=== PATIENT | female | born 1960 | race Caucasian/White ===

== ENCOUNTER 2018-07-21 10:24 | Outpatient (CLI) | payer OTHER, SELFPAY ==
--- NOTE | 2018-07-21 10:49 | DI.RAD_ITS ---
SYMPTOMS/DIAGNOSIS: RT HAND PAIN/SWELLING 2ND MCP, GRASPING/LIFTING YESTERDAY, FEEL SUDDEN TEAR RIGHT HAND: Three views. No acute fracture or dislocation is seen. The soft tissues are unremarkable. Mild degenerative changes are seen in the hand. IMPRESSION: No acute abnormality.
== END 2018-07-21 10:44 ==
PROVIDERS: PCP Nurse Practitioner Family; Visit Provider Nurse Practitioner Family
DX: M79.641 Pain in right hand (principal); R22.31 Localized swelling, mass and lump, right upper limb; M79.89 Other specified soft tissue disorders; M19.041 Primary osteoarthritis, right hand
CPT/HCPCS: 73130

== ENCOUNTER 2018-08-25 00:29 | Outpatient (CLI) | payer OTHER, SELFPAY ==
--- NOTE | 2018-08-25 14:35 | DI.MRI_ITS ---
SYMPTOMS/DIAGNOSIS: NECK PAIN, LEFT UPPER EXTREMITY NUMBNESS MRI OF THE CERVICAL SPINE: Routine noncontrast examination was performed. There is normal signal in the spinal cord. No evidence of tonsillar ectopia is seen. At C7-T1, there is no focal disc herniation, central spinal canal or neural foraminal stenosis. At C6-C7, there is a mild diffuse disc bulge. No significant central spinal canal stenosis is seen. There are mild degenerative changes of the uncovertebral joints and facets. There is mild narrowing of the neural foramen bilaterally. At C5-C6, there is a diffuse disc bulge with some effacement of the anterior thecal sac. No central spinal canal stenosis is seen. There are hypertrophic changes of the facets and uncovertebral joints. There is mild narrowing of the left neural foramen and right neural foramen. At C4-C5, there is a mild diffuse disc bulge. No central spinal canal stenosis is seen. There are mild degenerative changes of the facets and uncovertebral joints without significant neural foraminal stenosis. At C3-C4 and C2-C3, no significant central spinal canal or neural foraminal stenosis is seen. There is hyperintense signal seen in the C5 and C6 vertebral bodies on the T2 weighted images and corresponding decreased signal on the T1 weighted images. IMPRESSION: 1. Multilevel degenerative changes in the cervical spine, resulting in multilevel neural foraminal stenosis. Please see the above discussion for complete details. 2. Abnormal signal seen in the C5 and C6 vertebral bodies. This is nonspecific. Infection or metastatic disease cannot be excluded. Postcontrast MRI should be considered for further evaluation.
--- NOTE | 2018-08-25 17:23 | DI.VRAD_ITS ---
EXAM: MR Cervical Spine Without Intravenous Contrast EXAM DATE/TIME: 08/25/2018 2:31 PM CLINICAL HISTORY: 57 years old, female; Pain; Cervicalgia TECHNIQUE: Multiplanar magnetic resonance images of the cervical spine without intravenous contrast. COMPARISON: MRA BRAIN NECK WO,W 04/25/2015 4:30 PM FINDINGS: Vertebrae: There is increased STIR signal in C5 and C6 vertebrae and decreased T1 signal. Discs/Spinal canal/Neural foramina: No spinal stenosis. C2-C3: Unremarkable. C3-C4: Unremarkable. C4-C5: Minimal disc bulge. Bilateral facet and uncovertebral hypertrophy with mild left neural foramina narrowing. C5-C6: Mild disc bulge effacing the ventral thecal sac. Bilateral facet and uncovertebral hypertrophy with mild left neural foramina narrowing. C6-C7: Disc bulge. Bilateral facet and uncovertebral hypertrophy. Mild bilateral neural foramina narrowing. C7-T1: Unremarkable. The at the at the depth at the Spinal cord: Normal signal. No cord compression. Vasculature: Expected flow voids in the vertebral arteries. Soft tissues: Unremarkable IMPRESSION: Increased STIR signal in the C5 and C6 vertebrae. Given non-contrast images etiology can be infection versus metastasis. Dictated and Authenticated by: Tom Wan MD. Ordering:JUAN PIERCE MD
== END 2018-08-25 00:49 ==
PROVIDERS: PCP Nurse Practitioner Family; Visit Provider Nurse Practitioner Family
DX: M54.2 Cervicalgia (principal); R20.0 Anesthesia of skin; M50.322 Other cervical disc degeneration at C5-C6 level; M48.02 Spinal stenosis, cervical region
CPT/HCPCS: 72141

== ENCOUNTER 2018-09-13 02:01 | Outpatient (CLI) | payer OTHER, SELFPAY ==
[2018-09-13 16:10] LABS: CREATININE 0.58 mg/dL (0.55-1.02)
== END 2018-09-13 02:21 ==
PROVIDERS: PCP Nurse Practitioner Family; Visit Provider Nurse Practitioner Family
DX: I10 Essential (primary) hypertension (principal)
CPT/HCPCS: 36415; 82565

== ENCOUNTER 2018-09-14 00:30 | Outpatient (CLI) | payer OTHER, SELFPAY ==
[2018-09-14] MEDS: Gadoterate meglumine 20 ML VIAL 13 ML IVP (14:45)
--- NOTE | 2018-09-14 15:10 | DI.MRI_ITS ---
SYMPTOM/DIAGNOSIS: NECK PAIN, LUE TINGLING, F/U ABNL MRI, NONSPECIFIC SIGNAL C 5 AND C6 CERVICAL SPINE MRI: Comparison is made with 08/25/18. Fat suppressed T 1, sagittal and axial sequences were performed before and after IV Dotarem. The exam is limited by patient motion and inhomogeneous fat suppression. There is enhancement within the C 5 and C 6 vertebral bodies in the previously noted areas that showed high signal on the T 2 and STIR sequences. There is no abnormal enhancement surrounding the vertebral bodies. No vertebral expansion is seen. Degenerative disc changes are again noted at C 5-6. The signal abnormality and contrast enhancement could represent degenerative signal changes. There are no findings to suggest discitis. Metastatic disease or osteomyelitis could not be entirely excluded.
== END 2018-09-14 00:50 ==
PROVIDERS: PCP Nurse Practitioner Family; Visit Provider Nurse Practitioner Family
DX: M54.2 Cervicalgia (principal); R20.2 Paresthesia of skin; M50.322 Other cervical disc degeneration at C5-C6 level
CPT/HCPCS: 72142

== ENCOUNTER 2018-09-22 02:41 | Outpatient (CLI) | payer OTHER, SELFPAY ==
[2018-09-22 13:34] LABS: Abs Immature Grans 0.01 k/cumm (0.0-0.09); Absolute Basophil Count 0.03 k/cumm (0.0-0.2); Absolute Lymphocyte Count 2.59 k/cumm (1.2-3.4); Absolute Monocyte Count 0.64 k/cumm (0.11-0.7); Absolute Neutrophil Count 4.74 k/cumm (1.2-6.7); Basophils % 0.4; Eosinophils % 1.2; HCT 45.3 % (36.0-46.0); HGB 15.3 g/dL (12.0-15.5); Immature Grans % 0.1; Lymphocytes % 31.9; Mean Corp. HGB Concentration 33.8 g/dL (32.0-36.0); Mean Corpuscular Hemoglobin 32.3 pg (27.0-33.0); Mean Corpuscular Volume 95.6 fL (80-95); Mean Platelet Volume 10.6 fL (8.0-11.0); Monocytes % 7.9; Neutrophils % 58.5; Platelet Count 195 x1000/uL (130-400); RBC 4.74 m/cumm (4.00-5.20); RBC Distribution Width 12.4 % (11.7-14.6); White Blood Cell Count 8.11 k/cumm (4.4-10.8)
[2018-09-22 15:25] LABS: ESR 14 MM/HR (0-30)
== END 2018-09-22 03:01 ==
PROVIDERS: PCP Nurse Practitioner Family; Visit Provider Nurse Practitioner Family
DX: M54.2 Cervicalgia (principal); M50.322 Other cervical disc degeneration at C5-C6 level; R93.7 Abnormal findings on diagnostic imaging of other parts of musculoskeletal system
CPT/HCPCS: 36415; 85652; 85025

== ENCOUNTER 2018-10-10 00:45 | Outpatient (CLI) | payer OTHER, SELFPAY ==
[2018-10-10] MEDS: Gadoterate meglumine 20 ML VIAL 13 ML IVP (15:34)
[2018-10-10 15:40] LABS: TSH (W/Ref FT4) 2.65 uIU/mL (0.358-3.74)
--- NOTE | 2018-10-10 15:45 | DI.MRI_ITS ---
SYMPTOMS/DIAGNOSIS: NEW ONSET MIGRAINE/HEADACHES, G44.51 BRAIN MRI: MRI examination of the brain was performed according to the usual protocol with additional postcontrast axial and coronal T1 weighted imaging. No mass lesion or enhancing lesion is seen in the brain. Ventricular system is normal in appearance. No signal abnormality is identified. Diffusion weighted imaging is within normal limits. Orbital and temporal bone structures appear intact. There is normal flow void in the [place] of [place] vasculature. CONCLUSION: Negative brain MRI.
== END 2018-10-10 01:05 ==
PROVIDERS: PCP Nurse Practitioner Family; Visit Provider Psychiatry & Neurology Neurology
DX: G44.51 Hemicrania continua (principal); E03.9 Hypothyroidism, unspecified
CPT/HCPCS: 36415; 70553; 84443

== ENCOUNTER 2018-12-28 07:32 | Outpatient (CLI) | payer OTHER, SELFPAY ==
--- NOTE | 2018-12-28 06:00 | DI.RAD_ITS ---
SYMPTOM/DIAGNOSIS: CERVICAL RADICULOPATHY, CERVICAL EPIDURAL STEROID INJECTION C-ARM: Fluoroscopy Time: 25.3 seconds Images submitted from the pain clinic demonstrate positioning of a needle over the midline in the cervical spine in conjunction with an epidural steroid injection. Please see Dr. Sands's procedure report for further information.
[2018-12-28 07:39] VITALS: BP 117/81; PULSE 83; RESP 20; TEMP 36.9; O2SAT 99
[2018-12-28] MEDS: Lactated Ringers 1,000 ML 80 ML IV (08:19)
[2018-12-28] MEDS: Midazolam 2 MG/2 ML VIAL IVP ×2 (08:23→08:26)
[2018-12-28 08:33] VITALS: BP 147/89; PULSE 84; RESP 12; O2SAT 99
[2018-12-28] MEDS: methylPREDNISolone ACETATE 40 MG/ML VIAL IJ (08:35)
[2018-12-28] MEDS: Omnipaque 240 MG/ML 50 ML BTL IJ (08:35)
--- NOTE | 2018-12-28 08:37 | PDOC.PAIN ---
Pain Clinic Procedure Note Current Active Problems Problem Status Onset Cervical radiculitis Acute Cervical Epidural Steroid Injection RAE ROSSI has been referred to the [facility] for cervical epidural steroid injection. COMMENTS:Patient has neck pain radiating to left upper extremity with C5-6 disc protrusion. Patient was interviewed and the medical record reviewed. There were no medical, pharmacologic, radiographic or other structural contraindications to attempting fluoroscopically guided epidural steroid injection. Risks and expected side effects as well as potential benefit of the procedure were reviewed and voiced concerns addressed. The printed consent form was signed and witnessed. Standard time-out procedure was performed. The patient was placed in the prone position on the fluoroscopy table and automated blood pressure cuff and pulse oximeter applied. The skin entry point for entering the epidural space by a midline C7-T1 interlaminar approach was identified under fluoroscopy and marked. Following thorough Chlorhexadine preparation of the skin and draping and 1% lidocaine infiltration of the skin entry point and subcutaneous tissues, an 17 gauge Tuohy needle was placed under fluoroscopic guidance and with loss of resistance technique into the epidural space. Upon needle placement and loss of resistance there were no paresthesiae or return of blood or CSF through the needle. An Arrow catheter was thread cephalad to the C5 level {left} of midline. 1ml of Omnipaque 240 were injected with clear epidural spread in the A/P, lateral and oblique views. 80mg Depomedrol with 1ml sterile normal saline were injected through the catheter with no unusual discomfort expressed. Vital signs were stable throughout the procedure and were as recorded in the docflowsheet by the nursing staff. If given, dosages of intravenous drugs for anxiolysis and analgesia were documented in MAR. Follow up plans and appointments were discussed. Post procedure instruction was given as documented in nursing documentation and having met discharge criteria and was discharged from the [facility]. COMMENTS:Versed 2 mg given. She will follow-up as needed. Consider repeating or possible cervical medial branch block if pain is more axial. CC: Nicole Moser APRN
== END 2018-12-28 07:52 ==
PROVIDERS: PCP Nurse Practitioner Family; Visit Provider Anesthesiology Pain Medicine
DX: M54.12 Radiculopathy, cervical region (principal)
CPT/HCPCS: 62321; 72040; J1030; J2250; Q9967

== ENCOUNTER 2019-02-09 16:42 | Outpatient (REF) | payer OTHER, SELFPAY ==
--- NOTE | 2019-02-09 16:00 | PAPFT_PTH ---
PATIENT: Chloe Doran LOC: [facility] U#:[id number] AGE/SX: 58/F ROOM: RE02/09/[address]: ORIN Katz : 1960 BED: DIS: 02/09/2019 SPEC #: [id number] RECD: 02/10/19 13:06 STATUS: [place] CABA #: [id number] PAU: 02/09/19 16:[address]: Bridgett Slater DEPT: [facility] Cytology RECD BY: Freddy Keane ENTERED: 02/10/19 13:07 SP TYPE: PAPFT ODALYS DR: Nicole Moser, JAMES Tissues: 1 - CX/ENDOCX FOR PAP SMEARS Procedures: PAP THIN PREP/UVM Screening HPV DNA PROBE Comments: [id number]
== END 2019-02-09 17:02 ==
LOC: LBN 16:42
PROVIDERS: PCP Nurse Practitioner Family; Visit Provider Nurse Practitioner Family
DX: Z12.4 Encounter for screening for malignant neoplasm of cervix (principal); Z11.51 Encounter for screening for human papillomavirus (HPV)
CPT/HCPCS: 88142; 87624

== ENCOUNTER 2019-02-27 06:34 | Outpatient (CLI) | payer OTHER, SELFPAY ==
--- NOTE | 2019-02-27 16:30 | DI.MAMMO_ITS ---
SYMPTOM/DIAGNOSIS: SCREENING MAMMOGRAMS: Mammograms were interpreted according to the usual protocol including computer analysis with CAD system, tomosynthesis and C view imaging. Comparison is made with exams from [id number]. The breasts are composed of scattered fibroglandular densities, breast density, Category B. No suspicious masses or suspicious microcalcifications are seen. There has been no significant change. IMPRESSION: Category 1, negative mammogram. Yearly screening mammography is recommended. [facility] ASSESSMENT OF FINDINGS: Negative. Category 1. Patient will receive a letter notifying them of these results. BI-RADS category B. There are scattered areas of fibroglandular density.
== END 2019-02-27 06:54 ==
PROVIDERS: PCP Nurse Practitioner Family; Visit Provider Nurse Practitioner Family
CPT/HCPCS: 77063; 77067

== ENCOUNTER 2019-03-17 02:03 | Outpatient (CLI) | payer OTHER, SELFPAY ==
[2019-03-17 08:05] LABS: Hemoglobin A1C 5.5 % (4.5-6.2)
[2019-03-17 08:46] LABS: Anion Gap 10.7 mmol/L (3-11); BUN 8 mg/dL (7-18); CO2 26.3 mmol/L (21.0-32.0); CREATININE 0.55 mg/dL (0.55-1.02); Chloride 102 mmol/L (98-107); Cholesterol 263 mg/dL (50-200); Glucose 108 mg/dL (70-100); HDL Cholesterol 71 mg/dL (40-60); LDL CHOLESTEROL 149 mg/dL (<100); Potassium 4.4 mmol/L (3.5-5.1); Sodium 139 mmol/L (136-145); TSH (W/Ref FT4) 1.19 uIU/mL (0.358-3.74); Triglyceride 109 mg/dL (30-150)
== END 2019-03-17 02:23 ==
PROVIDERS: PCP Nurse Practitioner Family; Visit Provider Nurse Practitioner Family
DX: I10 Essential (primary) hypertension (principal); R73.01 Impaired fasting glucose; E78.5 Hyperlipidemia, unspecified; E03.9 Hypothyroidism, unspecified
CPT/HCPCS: 36415; 80048; 80061; 83721; 83036; 84443

== ENCOUNTER 2019-09-11 09:43 | Outpatient (CLI) | payer OTHER, SELFPAY ==
[2019-09-15 10:19] LABS: Metanephrine, Free 0.29 nmol/L (<0.50); Normetanephrine, Free 1.5 nmol/L (<0.90)
== END 2019-09-11 10:03 ==
PROVIDERS: PCP Nurse Practitioner Family; Visit Provider Nurse Practitioner Family
DX: I10 Essential (primary) hypertension (principal); E78.5 Hyperlipidemia, unspecified; R73.01 Impaired fasting glucose; E03.9 Hypothyroidism, unspecified; R19.4 Change in bowel habit; R79.89 Other specified abnormal findings of blood chemistry
CPT/HCPCS: 36415; 80048; 80061; 83036; 83835; 84439; 84443

== ENCOUNTER 2020-05-09 01:43 | Outpatient (CLI) | payer OTHER, SELFPAY ==
[2020-05-09 10:17] LABS: Anion Gap 10.4 mmol/L (3-11); BUN 9 mg/dL (7-18); CO2 24.6 mmol/L (21.0-32.0); CREATININE 0.63 mg/dL (0.55-1.02); Calcium 8.9 mg/dL (8.5-10.1); Calculated LDL 182 mg/dL (<100); Chloride 103 mmol/L (98-107); Cholesterol 287 mg/dL (<200); Glucose 113 mg/dL (74-106); HDL Cholesterol 92 mg/dL (40-60); Potassium 3.8 mmol/L (3.5-5.1); Sodium 138 mmol/L (136-145); Triglyceride 69 mg/dL (<150)
[2020-05-13 14:09] LABS: Metanephrine, Free 0.27 nmol/L (<0.50); Normetanephrine, Free 1.4 nmol/L (<0.90)
== END 2020-05-09 02:03 ==
PROVIDERS: PCP Nurse Practitioner Family; Visit Provider Nurse Practitioner Family
DX: I10 Essential (primary) hypertension (principal); E78.5 Hyperlipidemia, unspecified; E03.9 Hypothyroidism, unspecified
CPT/HCPCS: 36415; 80048; 80061; 83835; 84443

== ENCOUNTER 2020-08-02 06:55 | Day surgery (SDC) | payer OTHER, SELFPAY ==
[2020-08-02 07:12] VITALS: BP 118/81; PULSE 81; RESP 16; TEMP 36.1; O2SAT 98
--- NOTE | 2020-08-02 08:03 | W.PM.DSUDISC ---
Discharge Plan Disposition Patient Disposition: HOME Condition: Good Discharge Details Reason For Visit: Colonoscopy Attending Provider: Vaishnavi Orozco Primary Care Provider: Nicole Moser Home Meds and New Rx's Prescriptions: Continued estradiol [Vagifem] 10 mcg tablet 10 mcg VG DAILY 14 Days Qty: 24 RF: 4 amlodipine [Norvasc] 10 mg tablet 5 mg PO DAILY RF: 0 levothyroxine 175 mcg tablet 175 mcg PO DAILY Qty: 90 RF: 0 aspirin 81 MG tablet,delayed release (DR/EC) 81 mg PO DAILY RF: 0 Discontinued bisacodyl [Dulcolax (bisacodyl)] 5 mg tablet,delayed release (DR/EC) 5 mg PO ONCE Qty: 4 RF: 0 polyethylene glycol 3350 17 gram/dose powder 17 g PO ONCE Qty: 238 RF: 0 Discharge Instructions Additional Instructions: Findings: Two small polyps were removed. My office will contact you with biopsy results. Follow up: Plan for a colonoscopy in 5 years. Please call if you develop: fevers >101.5 Nausea or Vomiting Abdominal pain that is not transient [facility] POST COLONOSCOPY INSTRUCTIONS 1. Because there will be medication in your system for the next 24 hours, you may feel a little sleepy. Your coordination will be affected. Therefore: a. Do not drive or operate dangerous equipment for 24 hours. b. Do not drink alcohol beverages for 24 hours (not even beer). c. Plan to go home and rest for the day. 2. Generally there are no restrictions on your activity after a day or so has gone by, but you may feel a bit fatigued for a few days. 3 After you arrive home you may have a light meal and return to a normal diet as you can tolerate it without feeling sick to your stomach. 4. After surgery, you may feel pain or discomfort. This should be only transient, but if it persists please contact your doctor. 5. If there are any questions regarding the findings of your procedure, please feel free to contact your doctor. 6. If you are unable to contact your doctor with a problem, contact the hospital at [phone]. 7. Continue all your regular medications unless directed otherwise. I understand the above instructions and have no questions. Signature of Patient or Responsible Adult Escort Date/Time Name of Responsible Adult Escort Signature of Nurse Date/Time Activity:: Activity as Tolerated Diet:: As Tolerated Discharge Orders Discharge Orders: Discharge Order (Routine); Ordered 08/02/20 Ordered By: Vaishnavi Orozco DS: Diagnosis Discharge Diagnosis (1) Colon polyps: Status: Acute (2) Diverticulosis: Status: Chronic
--- NOTE | 2020-08-02 08:04 | W.COLOREPORT ---
Date of service: 08/02/20 Time of Service: 09:08 Colonoscopy Report Date of procedure: 08/02/20 Pre-op diagnosis general: History of colon polyp Post-op diagnosis procedure note: other (Colon polyps, diverticulosis) Procedure: Colonoscopy with cold forceps polypectomy Surgeon: Vaishnavi Orozco Anesthesia proc note operative: MAC Indications: This 59 year old woman had a greater than 1cm sigmoid tubular adenoma removed in 2014. She presents for follow up. No FH colon cancer. Procedure Description: The patient was placed in the left Mckeon position. Propofol was titrated to sedation. Digital rectal examination revealed no abnormalities. The scope was advanced to the cecum without difficulty. The ileocecal valve and appendiceal orifice were clearly identified. The prep was good. The scope was slowly withdrawn over the course of greater than 6 minutes. A diminuitive polyp was removed from the ascending colon with the cold forceps. No abnormalities were seen in the transverse, descending, sigmoid colon with the exception of scattered diverticulosis. The rectum revealed a 8mm polyp on retroflexed view which was removed with the cold forceps. The patient tolerated the procedure well and was stable to recovery. Plan for follow up colonoscopy in 5 years.
[2020-08-02] MEDS: Lactated Ringers 1,000 ML 80 ML IV (08:05)
--- NOTE | 2020-08-02 08:31 | BOWEL_PTH ---
PATIENT: Chloe Doran LOC: [facility] U#:[id number] AGE/SX: 59/F ROOM: RE08/02/[address]: Vaishnavi Orozco MD : 1960 BED: DIS: 08/02/2020 SPEC #: [id number] RECD: 08/02/20 11:01 STATUS: [place] REQ #: [id number] PAU: 08/02/20 08:[address]: Vaishnavi Orozco DEPT: Surgical Specimen RECD BY: Yadi Johnston ENTERED: 08/02/20 11:03 SP TYPE: Bowel OTHR DR: Nicole Moser, AUTOMOBILE APPRAISER Tissues: 1 - BIOPSY BOWEL 2 - BIOPSY BOWEL Procedures: GROSS AND MICRO LEVEL 4 Comments: [id number]
[2020-08-02 09:32] VITALS: BP 142/88; PULSE 69; RESP 20; TEMP 36.2; O2SAT 99
== END 2020-08-02 09:55 | disposition home or self-care (01) ==
PROVIDERS: PCP Nurse Practitioner Family; Visit Provider Surgery
PROC: 0DJD8ZZ Inspection of Lower Intestinal Tract, Via Natural or Artificial Opening Endoscopic (ICD-10-PCS; CPT 45378; principal; 2020-08-02 08:30)
DX: Z12.11 Encounter for screening for malignant neoplasm of colon (principal); Z86.010 Personal history of colon polyps; K57.30 Diverticulosis of large intestine without perforation or abscess without bleeding; K62.1 Rectal polyp
CPT/HCPCS: 45380; 88305; J2001

== ENCOUNTER 2021-01-01 02:13 | Outpatient (CLI) | payer OTHER, SELFPAY ==
[2021-01-01 08:04] LABS: Hemoglobin A1C 5.6 % (<5.7)
[2021-01-01 09:27] LABS: Calculated LDL 138 mg/dL (<100); Cholesterol 246 mg/dL (<200); HDL Cholesterol 97 mg/dL (40-60); TSH (W/Ref FT4) 3.56 uIU/mL (0.36-3.74); Triglyceride 59 mg/dL (<150)
== END 2021-01-01 02:14 | disposition home or self-care (01) ==
LOC: LBO 02:13
PROVIDERS: PCP Nurse Practitioner Family; Visit Provider Nurse Practitioner Family
DX: R73.01 Impaired fasting glucose (principal); E78.5 Hyperlipidemia, unspecified; E03.9 Hypothyroidism, unspecified
CPT/HCPCS: 36415; 80061; 83036; 84443

== ENCOUNTER 2021-12-30 10:25 | Observation (INO) | payer OTHER, SELFPAY ==
[2021-12-30] VITALS (25 sets, daily range): BP systolic 131–191; BP diastolic 65–96; PULSE 58–91; RESP 7–20; TEMP 36.6–36.8; O2SAT 94–100
--- NOTE | 2021-12-30 | DI.US_ITS ---
APPROVED REPORT EXAM: Comprehensive 2D, Doppler, and color-flow Echocardiogram Patient Location: ER Room/Bed: 2 Headline Writer: Daphne Perrin RDCS (AE) Indications: TIA Symptoms Other Information Study Quality: Adequate Conclusion Normal left ventricular wall thickness and chamber size. Estimated ejection fraction is 65%. Wall m otion is normal Normal right ventricular size and systolic function Both atria are normal in size There is no structural or hemodynamically significant valvular disease Wall motion Left Ventricle The left ventricle is normal size. The left ventricular systolic function is normal. The left ventric ular ejection fraction is within the normal range. There is normal left ventricular wall thickness. T here is normal LV segmental wall motion. There is no ventricular septal defect visualized. LVEF is 65 %. Right Ventricle Right ventricle is grossly normal in size. Right ventricular systolic function is grossly normal. The RVSP is 26.0 mmHg. Atria The left atrium size is normal. The right atrium size is normal. The interatrial septum is intact wit h no evidence for an atrial septal defect. Aortic Valve The aortic valve is normal in structure. Aortic valve is trileaflet. There is no aortic valvular sten osis. No aortic regurgitation is present. Mitral Valve The mitral valve is normal in structure. No evidence of mitral valve stenosis. Trace to mild mitral r egurgitation. Tricuspid Valve The tricuspid valve is normal in structure. There is no tricuspid valve stenosis. Trace tricuspid reg urgitation. Pulmonic Valve Pulmonic valve is not well visualized. There is no pulmonic valvular stenosis. There is no pulmonic v alvular regurgitation. Great Vessels The aortic root is normal in size. Ascending aorta is not well visualized. Aortic arch is normal in c aliber. IVC is normal in size and collapses >50% with inspiration. Pericardium There is no pericardial effusion. 2D Dimensions IVSD d PLAX 0.90 cm F: 0.6-1.0 LV Vol A2C d MOD 86.0 mL LVPW d PLAX 0.91 cm F: 0.6 - 1.0 LV Vol A4C d MOD 77.7 mL LVID d PLAX 4.20 cm F: 3.8 - 5.2 LA vol/ BSA A2C s A-L 21.8 mL/m2 LVDs 2.75 cm F: 2.2 - 3.5 LA vol/ BSA A4C s A-L 13.1 mL/m2 Ao Root d 2.63 cm F: 2.7 - 3.3 LA Vol/ BSA Biplane s A-L 17.8 mL/m2 RA Area A4C 9.50 cm2 LA Area A4C s MOD 10.38 cm2 RA Vol/ BSA A4C s A-L 11.8 mL/m2 LA Area A2C s MOD 14.15 cm2 LV EF Teichholz 63.3 % LV EF A4C MOD 65.0 % LVEF ([place]'s) 65.55 % F: 54 - 74 LV EF A2C MOD 65.1 % LV Volume 65.98 mL F: 46 - 106 LV EF Biplane MOD 65.6 % LV Volume Index 37.91 mL/m2 F: 29 - 61 SV 55.02 mL LV Vol Biplane MOD 83.9 mL SV Index 31.48 mL/m2 FS 33.95 % M-Mode TAPSE 2.48 cm (M/F) >1.7 LV Diastology MV E' medial 0.085 (>0.07 m/s) E/A Ratio 0.8 LV E/e MED 8.10 (<14) MV E Vmax 0.69 (0.4-1.3 m/s) MV E' lateral 0.086 (>0.1 m/s) MV A Vmax 0.90 (0.4-1.3 m/s) LV E/e LAT 7.95 (<14) MV E/A Ratio 0.76 MV E/E' medial 8.11 MV E/E' lateral 7.95 Aortic Valve LVOT Area 2.96 cm2 AoV Area Vmax 1.87 cm2 LVOT Vmax 1.09 m/s AoV Area/ BSA (Vmax) 1.07 cm2/m2 LVOT Mean Eagle. 0.67 m/s BELLE Mean Eagle. 1.71 cm2 LVOT Peak Grad 4.7 mmHg BELLE Mean Eagle. Index 0.98 cm2/m2 LVOT Mean Grad 2.2 mmHg LVOT VTI 0.229 m LVOT Diam s 1.90 cm AoV Vmax 1.72 m/s Velocity Ratio 0.63 AoV Mean Eagle. 1.17 m/s AoV Peak Grad 11.8 mmHg LVOT SV 67.64 mL AoV Mean Grad 6.1 mmHg AoV VTI 0.357 m AoV Area VTI 1.89 cm2 AoV Area/ BSA (VTI) 1.08 cm/m2 Mitral Valve MV DT 275 (160-240 msec) MV PHT 80 msec MV Area PHT 2.76 cm2 MV VTI 0.218 m MV Area VTI 3.10 (4.0-6.0 cm2) Pulmonary Valve PV Vmax 0.90 (0.5-1.5 m/s) RVOT Peak Gr. 2.61 mmHg PV Peak Grad 3.2 mmHg RVOT Mean Gr. 1.30 mmHg PV Mean Grad 1.8 mmHg RVOT VTI 0.184 m PV VTI 0.192 m RVOT Vmax 0.81 m/s Tricuspid Valve TR Peak Grad 22.9 mmHg TR Vmax 2.40 m/s RA Pressure 3.00 mmHg RVSP (TR) 26.0 mmHg
--- NOTE | 2021-12-30 | DI.US_ITS ---
Exam(s) US CAROTID EXAM: US CAROTID CLINICAL HISTORY: R internal carotid stenosis on CT. TECHNIQUE: Ultrasound carotids performed using grayscale, color-flow, and spectral Doppler imaging. COMPARISON: No exams were available for comparison FINDINGS: RIGHT CAROTID ARTERY: Plaque: Severe calcified plaque common carotid bulb and proximal internal carotid artery Velocity elevation: Elevated velocities in the common carotid bulb and proximal internal carotid ama ry consistent with moderate degree of stenosis, 50-69 percent. LEFT CAROTID ARTERY: Plaque: Severe calcified plaque common carotid bulb and proximal internal carotid artery. Velocity elevation: Severe systolic and diastolic velocity elevations in the proximal internal caroti d artery consistent with a greater than 70 percent stenosis. VERTEBRAL ARTERIES: Antegrade flow. Measurements: R Bulb: 144.6cm/s PS / 44cm/s ED R CCA: 66.5cm/s PS / 19.5cm/s ED R ECA: 145.2cm/s PS / 30.8cm/s ED R ICA Prox: 163.25cm/s PS /47.6cm/s ED R ICA Mid: 111.5cm/s PS / 31.6cm/s ED R ICA Distal: 69.4cm/s PS /26.8cm/s ED R Vert: 44.4cm/s PS / 14.8cm/s ED R SVR: 2.49 R DVR: 2.44 L Bulb: 62.8cm/s PS /21.5cm/s ED L CCA: 52.6cm/s PS / 15.75cm/s ED L ECA: 125.6cm/s PS /26.4cm/s ED L ICA Prox:258.9cm/s PS / 76.34cm/s ED L ICA Mid: 124.9cm/sPS / 34.7cm/s ED L ICA Distal: 86.2cm/s PS / 32.6cm/s ED L Vert: 33.7cm/s PS / 12.1cm/s ED L SVR: 5.25 L DVR: 6.01 IMPRESSION: Greater than 70 percent stenosis proximal left internal carotid artery. 50-69 percent stenosis proximal right internal carotid artery. Criteria for Carotid Stenosis: Normal: ICA PSV <125 cm/s no plaque or intimal thickening is visible. <50% stenosis: ICA PSV <125 cm/s and plaque or intimal thickening is visible. 50-69% stenosis: ICA PSV is 125-250 cm/s and plaque is visible. >70% stenosis to near occlusion: ICA PSV >250 cm/s with visible plaque and luminal narrowing. DATA REPOSITORY:
--- NOTE | 2021-12-30 | DI.MRI_ITS ---
Exam(s) MR BRAIN WO EXAM: MR BRAIN WO CLINICAL HISTORY: TIA symptoms TECHNIQUE: Multiplanar multisequence MRI of the brain was performed. COMPARISON: No exams were available for comparison FINDINGS: VENTRICLES AND EXTRA AXIAL SPACES: Normal in size and morphology for the patient's age. MIDLINE SHIFT: None. CEREBRAL PARENCHYMA: No focus of restricted diffusion to suggest acute infarct. No space-occupying le teetee identified. HEMORRHAGE: None. BRAINSTEM/CEREBELLUM: Normal. VISUALIZED PARANASAL SINUSES/MASTOIDS:Clear. [place]: Normal flow void. [place]: Unremarkable. OTHER FINDINGS: None. IMPRESSION: Unremarkable MRI of the brain. DATA REPOSITORY:
--- NOTE | 2021-12-30 10:15 | RT.EKG_ITS ---
APPROVED REPORT Exam: Resting ECG Reason for Exam: dizzy,faintness Patient Location: E HR:78 bpm ECG Measurements Heart Rate 78 AXIS WA 135 P 70 QRSd 83 QRS 62 QT 399 T 61 QTc 456 Conclusion Sinus rhythm...normal P axis, V-rate 60- 99 Probable left atrial enlargement...P >50mS, <-0.10mV V1. Sinus. Normal axis. No STEMI. I have reviewed and interpreted ECG and agree with software generated interpretation.
--- NOTE | 2021-12-30 10:33 | ED.GENADUL_ITS ---
Discharge Plan Disposition Patient Disposition: [facility] INPATIENT Condition: Stable Discharge Details Clinical Impression: TIA (transient ischemic attack), Hypertension, Dizziness Admit Date/Time: 12/30/21 13:15 Admit Provider: Kevin Pickett Attending Provider: Kevin Pickett Primary Care Provider: Nicole Moser ED Provider: Niecy Worthy Discharge Data Discharge Date/Time-TO BE ENTERED AT DEPARTURE: 12/30/21 14:22 Medical Decision Making 1030 -- 61-year-old female with a history of hypertension, tobacco smoking, TIA and daily alcohol use who presents for lightheadedness, headache and nausea that started within the past hour while driving. EKG notes a rate of 78, sinus, no STEMI nondiagnostic. Her blood pressure is hypertensive at 191/96. It is improving at 179/84. Patient appears slightly anxious but nontoxic. She has no focal deficits on exam. No cerebellar signs. No meningeal signs. 1115 --nursing requested assessment at bedside as patient is complaining of right hand tingling and numbness. She has an IV in the right AC. Patient states his right arm feels warm. She has no notable focal deficits. Her sensory and motor is grossly intact. Will continue to monitor. 1240 -- CTA head and neck imaging reviewed. Unremarkable CTA head. CTA neck notes 70 to 80% stenosis in the right internal carotid and 50 to 60% stenosis on the left internal carotid. Chest x-ray negative. Patient reassessed and she states her headache, nausea and dizziness are completely resolved. She states the right hand paresthesias last approximately 30 minutes and occurred after the Zofran was administered in the IV in right AC fossa. Discussed with patient that her symptoms could be due to the Zofran, however considering her history and presenting symptoms, would recommend admission for TIA. Patient initially was hesitant and declined MRI imaging and admission to the hospital. Case discussed with Dr. Tian who agreed with potential diagnosis of TIA and for admission to the hospital. Recommend starting dual platelet antitherapy. Discussed that follow-up with vascular surgery for treatment of the carotid artery stenosis could be delayed if not treated within 2 weeks of symptoms. This plan was discussed with patient and she is now agreeable with admission. Will load with 300 mg plavix. 1310 -- Case discussed with hospitalist who accepts patient for admission. Patient's blood pressure has improved, now 145/80. Medical Records Medical records reviewed: Yes I reviewed the patient's medical records. Imaging Data Radiologic Study: Radiologist's impression: CT BRAIN ? NECK CTA CLINICAL HISTORY: ? dizziness, headache, r/o acute cva. ? TECHNIQUE:? Imaging Protocol:? Axial CT angiography was performed with multi- slice acquisition and multi-planar and/or 3D reconstructions. CONTRAST MATERIAL:? Intravenous: Omnipaque 350 Contrast volume:85 ml COMPARISON:? MR MR brain wo/w from 10/10/2018 FINDINGS: CT Head W/O and W contrast: Ventricles and Extra axial spaces: Normal in size and morphology for the patient's age. Hemorrhage: None. Cerebral parenchyma: Normal. Midline shift: None. Brainstem/Cerebellum: Normal. Calvarium: Normal. Visualized Paranasal sinuses/Mastoids: Clear. Soft Tissues: Unremarkable. Enhancement: Normal. CTA Brain W: Internal Carotid Arteries: Petrous: Mild calcification bilaterally. No stenosis. Cavernous: Normal. Cerebral: Normal. Middle Cerebral Arteries: Right:? No aneurysm, occlusion or significant stenosis. Left:? No aneurysm, occlusion or significant stenosis. Anterior Cerebral Arteries: Right:? No aneurysm, occlusion or significant stenosis. Left:? No aneurysm, occlusion or significant stenosis. Posterior cerebral Arteries: Right:? No aneurysm, occlusion or significant stenosis. Left:? No aneurysm, occlusion or significant stenosis. Vertebral Arteries: Right:? No aneurysm, occlusion or significant stenosis. Left:? No aneurysm, occlusion or significant stenosis. Basilar Artery:? No aneurysm, occlusion or significant stenosis. CTA Neck W: Common Carotid: Right no aneurysm, occlusion or significant stenosis. Left: .? No aneurysm, occlusion or significant stenosis. External Carotid: Right:? No aneurysm, occlusion or significant stenosis. Left:? No aneurysm, occlusion or significant stenosis. Internal Carotid: Right: Irregular calcific plaque at the origin causing approximate 70-80 percent diameter stenosis. Distally the vessel shows no plaque. No aneurysm, occlusion o r significant stenosis. Left:? Irregular calcified plaque at the origin causing approximately? 50 - 60 percent diameter stenosis. Distally the vessel shows no plaque. No aneurysm, occlusion or dissection. Vertebral Artery: Right: Dominant.? No aneurysm, occlusion or significant stenosis. Left:? No aneurysm, occlusion or significant stenosis. Mild calcification at the aortic arch. Lung Apices: Normal. Bones: Normal. Soft Tissues: Normal. IMPRESSION: 1. Normal CTA examination of the [place]. 2. Unremarkable CT Head. 3. Heavy calcific plaque at the common carotid bulbs and proximal internal carotid arteries causing approximately 70-80 percent diameter stenosis on the right and 50 to 60 percent diameter stenosis on the left. No evidence of dissection. XR CHEST 2V PA ? LATERAL CLINICAL HISTORY:? dizziness, r/o acute disease TECHNIQUE:? 2D digital imaging was performed. COMPARISON:? CR THORACIC SPINE from 10/16/2016 FINDINGS: MEDIASTINUM: Normal.? HEART: Normal. PULMONARY VASCULATURE: Normal. LUNGS: Clear. ? PLEURAL SPACE: No pleural effusion or pneumothorax. BONE:Unremarkable for age.? IMPRESSION: No acute abnormality.? Lab Data Lab results reviewed: Yes I reviewed the patient's lab results. Labs: Laboratory Tests Range/Units 12/30/21 12/30/21 10:30 10:30 WBC (4.4-10.8) 10^3/uL 9.36 RBC (3.93-5.22) 10^6/uL 5.49 H Hgb (11.2-15.7) g/dL 17.6 H Hct (36.0-46.0) % 52.5 H MCV (80-95) fL 95.6 H MCH (27.0-33.0) pg 32.1 MCHC (32.0-36.0) % 33.5 RDW (11.7-14.6) % 12.1 Plt Count (130-400) 10^3/uL 233 MPV (8.0-11.0) fL 10.0 Immature Gran % 0.4 Neutrophils % 62.1 Lymphocytes % 29.7 Monocytes % 6.7 Eosinophils % 0.4 Basophils % 0.7 Nucleated RBC % % 0 Absolute Neutrophils (1.2-6.7) 10^3/uL 5.80 Absolute Lymphocytes (1.2-3.4) 10^3/uL 2.78 Absolute Monocytes (0.1-0.8) 10^3/uL 0.63 Absolute Eosinophils (0.0-0.7) 10^3/uL 0.04 Absolute Basophils (0.0-0.2) 10^3/uL 0.07 Sodium (136-145) mmol/L 133 L Potassium (3.5-5.1) mmol/L 3.9 Chloride (98-107) mmol/L 96 L Carbon Dioxide (21.0-32.0) mmol/L 25.7 Anion Gap (3-11) mmol/L 11.3 H BUN (7-18) mg/dL 8 Creatinine (0.55-1.02) mg/dL 0.6 Estimated GFR/1.73 m2 (mL/min/1.73m2) >= 60.00 Glucose (74-106) mg/dL 135 H Calcium (8.5-10.1) mg/dL 9.4 Magnesium (1.8-2.4) mg/dL 2.0 Total Bilirubin (0.2-1.0) mg/dL 0.6 AST (15-37) U/L 26 ALT (14-59) U/L 26 Alkaline Phosphatase (46-116) U/L 122 H Troponin I (<or=60) ng/L < 50 Total Protein (6.4-8.2) g/dL 8.9 H Albumin (3.4-5.0) g/dL 4.7 ECG Data Attestation: I personally reviewed and interpreted this ECG (s) as follows: Interpretation: Rate of 78, sinus, no STEMI. HPI General Mode of arrival: ambulatory . Date/Time Provider Initiated Documentation: 12/30/21 10:30 . Limitations to Documentation: no limitations . Information obtained by: patient . HPI Narrative: Patient is a 61-year-old female with a history of tobacco smoking, hypertension, TIA and daily alcohol use who presents for lightheadedness that occurred while driving within the past hour. Patient states she was driving in her car approximately 45 minutes ago when she felt a sudden onset of lightheadedness, headache and nausea. She denies any chest pain, shortness of breath, blurry vision, slurred speech or unilateral extremity weakness or numbness at that time. She states the symptoms are 25% resolved at this time. She denies any recent illness, new medications, injury or any change in her history. She states she thought her symptoms today were due to potentially high blood pressur e. She states her normal blood pressure is 140/90. She states she takes her amlodipine in the morning and did take it this morning. She states the last time she was hospitalized was several years ago when she was here for strokelike symptoms and also high blood pressure. She denies any of these strokelike symptoms at this time. Related Data Home Medications Medication Instructions Recorded Confirmed aspirin 81 mg tablet,delayed 81 mg PO DAILY tab 01/07/16 12/30/21 release amlodipine 10 mg tablet (Norvasc) 10 mg PO DAILY #90 tab-cap 03/13/21 12/30/21 levothyroxine 175 mcg tablet 175 mcg PO DAILY #90 tab-cap 03/13/21 12/30/21 omeprazole 20 mg capsule,delayed 20 mg PO DAILY 12/30/21 12/30/21 release Previous Rx's Medication Instructions Recorded amlodipine 10 mg tablet (Norvasc) 10 mg PO DAILY #90 tab-cap 03/13/21 levothyroxine 175 mcg tablet 175 mcg PO DAILY #90 tab-cap 03/13/21 Allergies Allergy/AdvReac Type Severity Reaction Status Date / Time lisinopril AdvReac Intermediate cough Verified 12/30/21 10:35 propranolol AdvReac Intermediate stomach Verified 12/30/21 10:35 rosuvastatin calcium AdvReac Intermediate GI, Muscle Verified 12/30/21 10:35 [From Crestor] venlafaxine AdvReac Unknown [place] Verified 12/30/21 10:35 ting General Stated Complaint: Dizzy/Sync AYLEEN: 2 Review of Systems All systems reviewed & are unremarkable except as noted in HPI and below Constitutional Constitutional: Reports as per HPI, Denies chills, Denies fever(s) and Reports headache(s) Eyes Eyes: Denies blurry vision ENT Ears, Nose, Mouth, and Throat: Reports dizziness, Reports headache(s), Denies sore throat and Denies throat swelling Cardiovascular Cardiovascular: Denies chest pain and Denies dyspnea Respiratory Respiratory: Denies cough and Denies dyspnea Gastrointestinal Gastrointestinal: Denies abdominal pain, Denies diarrhea, Reports nausea and Denies vomiting Genitourinary Genitourinary: Denies hematuria and Denies dysuria Musculoskeletal Musculoskeletal: Denies back pain and Denies numbness Integumentary/Breasts Skin/Breast: Denies lesions and Denies rash Neurologic Neurologic: Reports dizziness, Reports headache(s), Denies localized weakness and Denies numbness Allergic/Immunologic Allergic/Immunologic: Denies throat swelling PFSH All Active Problems (Updated 12/30/21 @ 19:45 by Ruth Tian MD) Carotid stenosis (Acute) TIA (transient ischemic attack) (Acute) Hypertension (Chronic) Dizziness (Acute) Tobacco use disorder (Chronic) IFG (impaired fasting glucose) (Chronic 01/18/17) History of colon polyps (Acute) Elevated plasma metanephrines (Chronic) Hot flashes (Chronic) Cervical radiculitis (Acute) Ocular migraine (Chronic) Carpal tunnel syndrome of left wrist (Chronic) Vitamin D deficiency (Chronic) Hyperlipidemia (Chronic 04/17/02) 12/2020 labs: 10-year ASCVD risk = ~7.6% Essential hypertension (Chronic 05/17/13) Diverticulosis (Chronic 11/13/15) Atrophic vaginitis (Chronic 03/09/17) Rx with Estring. Acquired hypothyroidism (Chronic 04/17/99) s/p radioablation for Graves hyper 1997; h/o exophthalmos L eye Rx 6 wk prednisone 1999; pt's TSH goal: ~2 Medical History Colonic adenoma (10/17/15) repeat 2019 Graves' ophthalmopathy TIA (transient ischemic attack) (04/29/15) Pt. states this is incorrect, pt. states this was ruled out by the neurologist (Omar Perez) Tubular adenoma of colon Surgical History Arthroplasty of knee (08/04/06) arthroscopy bunionectomy (09/20/15) Dr Valverde R Cholecystectomy (11/16/05) laparoscopic EGD - MAC (07/21/15) hammer toe repair (09/20/15) R 2nd toe arthrodesis Hx of colonoscopy Open Carpal Tunnel release (11/01/17) [facility] Trigger Finger release (05/02/13) Dr. Mcwilliams Family History Mother COPD (chronic obstructive pulmonary disease) Cerebral aneurysm Dementia Heart disease Hypertension Father , prostate ca at age 86. Diabetes Personal history of malignant neoplasm Metastasized prostate CA Heart disease Hypertension Social History Smoking/Tobacco Use Status: Current every day Tobacco Type: cigarettes Smoking packs per day: 0.75 Smoking cigarettes per day: 15.0 Years smoked: 40 Smoking pack-years: 30.00 Tobacco: How many years used: 30 Quit status: not considering quitting Smoking risk assessment performed?: Yes Alcohol Intake: current Alcohol Intake frequency: 0-2 drinks per day Alcohol type: wine Drug use: Never Substance use type: does not use Adopted: No Caregiver/Support person: No Foster care: No Household members: spouse Housing: apartment Communication Needs: None Education Level: college Do you need help understanding health information?: Rarely 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 Pets and animals: Yes Pets and animals: cat(s) Sexually active: Yes Do you think of yourself as: straight/heterosexual Current gender identity: female What is your relationship status?: How often do you talk on the phone with friends or family?: three or more times per week How often do you get together with friends or relatives?: twice per week Do you belong to any clubs or organized social groups?: no Panel score (0-1 are the most socially isolated patients): 2 Special violet needs: No Seatbelt use: always Helmet use: No Drive intox or ride w/intox mechanic welder truck driver: No Water heater temp set <120 deg: Yes Working smoke detector in home: Yes Fire extinguisher in home: Yes Carbon monox detector in home: Yes Firearms in home: No Do you feel safe at home: Yes Do you feel safe in your relationship?: Yes Victim of physical abuse: No Victim of emotional abuse: No Victim of sexual abuse: No History History 0 Para Hx # Term Pregnancies Multiple births Hx # Pregnancies Ectopic pregnancies AB induced Hx Number of Living Children AB spontaneous Exam Const General: cooperative and no acute distress Orientation: alert, awake and oriented x3 HENMT Head: normal to inspection Mouth: oral mucosae normal Eyes General: appearance normal, both eyes and all related structures Pupils: PERRL EOM: EOM intact bilaterally Neck Neck: normal visual inspection Resp Effort & Inspection: normal respiratory effort and able to speak in complete sentences Auscultation: clear to auscultation bilaterally Cardio Rate: regular rate Rhythm: regular rhythm GI Inspection: normal to inspection Palpation: soft, not firm, no guarding, not rigid and nontender Back/Spine/Pelvis Thoracic/Lumbar Spine: thoracic and lumbar spine normal to inspection Skin General skin exam: no rashes or lesions noted Neuro General: patient alert, patient awake, patient oriented x3, moves all extremit ies, no meningeal signs and no focal motor deficits Cranial Nerves: CN's II-XI intact bilaterally Motor: muscle tone normal throughout, strength 5/5 throughout, no pronator drift and no movement abnormalities noted Extrem General: normal to inspection and full ROM Psych Appearance: grossly normal Affect: normal affect Course Vital Signs Vital signs: Vital Signs Temperature 98.1 F 12/30/21 10:30 Pulse 91 H 12/30/21 10:30 Respiratory Rate 15 12/30/21 10:30 Blood Pressure 191/96 H 12/30/21 10:30 Pulse Oximetry 99 12/30/21 10:30 Temperature 98.1 F 12/30/21 10:30 Temperature Source Temporal Artery Scan 12/30/21 10:30 Pulse 91 H 12/30/21 10:30 Respiratory Rate 15 12/30/21 10:30 Blood Pressure 191/96 H 12/30/21 10:30 Blood Pressure Position Supine 12/30/21 10:30 Pulse Oximetry 99 12/30/21 10:30 Oxygen Delivery Method Room Air 12/30/21 10:30 Oxygen Flow Rate 0 12/30/21 10:30 Pain Level 0 12/30/21 10:30
[2021-12-30 10:43] LABS: Abs Immature Grans 0.04 10^3/uL (0.0-0.06); Absolute Basophil Count 0.07 10^3/uL (0.0-0.2); Absolute Eosinophil Count 0.04 10^3/uL (0.0-0.7); Absolute Lymphocyte Count 2.78 10^3/uL (1.2-3.4); Absolute Monocyte Count 0.63 10^3/uL (0.1-0.8); Basophils % 0.7; Eosinophils % 0.4; HCT 52.5 % (36.0-46.0); HGB 17.6 g/dL (11.2-15.7); Immature Grans % 0.4; Lymphocytes % 29.7; MCH 32.1 pg (27.0-33.0); MCHC 33.5 % (32.0-36.0); MCV 95.6 fL (80-95); Monocytes % 6.7; Neutrophils % 62.1; Nucleated RBC 0 %; Platelet Count 233 10^3/uL (130-400); RBC 5.49 10^6/uL (3.93-5.22); RDW 12.1 % (11.7-14.6); RDW-SD 43.7 fL; WBC 9.36 10^3/uL (4.4-10.8)
[2021-12-30 11:05] LABS: ALT 26 U/L (14-59); AST 26 U/L (15-37); Albumin 4.7 g/dL (3.4-5.0); Alkaline Phosphatase 122 U/L (46-116); Anion Gap 11.3 mmol/L (3-11); BUN 8 mg/dL (7-18); Bilirubin, Total 0.6 mg/dL (0.2-1.0); CO2 25.7 mmol/L (21.0-32.0); CREATININE 0.6 mg/dL (0.55-1.02); Calcium 9.4 mg/dL (8.5-10.1); Chloride 96 mmol/L (98-107); Glucose 135 mg/dL (74-106); Potassium 3.9 mmol/L (3.5-5.1); Sodium 133 mmol/L (136-145); Total Protein 8.9 g/dL (6.4-8.2); Troponin I < 50 ng/L (<or=60)
[2021-12-30] MEDS: Normal Saline 1,000 ML 1000 ML IV (11:06)
[2021-12-30] MEDS: ACETAMINOPHEN 1,000 MG/100 ML BTL 400 MG IVPB (11:06)
[2021-12-30] MEDS: Ondansetron 4 MG/2 ML VIAL IVP (11:07)
[2021-12-30] MEDS: Omnipaque 350 MG/ML 100 ML BTL IJ (12:06)
--- NOTE | 2021-12-30 12:07 | DI.CT_ITS ---
Exam(s) CT BRAIN NECK CTA EXAM: CT BRAIN NECK CTA CLINICAL HISTORY: dizziness, headache, r/o acute cva. TECHNIQUE: Imaging Protocol: Axial CT angiography was performed with multi-slice acquisition and mu lti-planar and/or 3D reconstructions. CONTRAST MATERIAL: Intravenous: Omnipaque 350 Contrast volume:85 ml COMPARISON: MR MR brain wo/w from 10/10/2018 FINDINGS: CT Head W/O and W contrast: Ventricles and Extra axial spaces: Normal in size and morphology for the patient's age. Hemorrhage: None. Cerebral parenchyma: Normal. Midline shift: None. Brainstem/Cerebellum: Normal. Calvarium: Normal. Visualized Paranasal sinuses/Mastoids: Clear. Soft Tissues: Unremarkable. Enhancement: Normal. CTA Brain W: Internal Carotid Arteries: Petrous: Mild calcification bilaterally. No stenosis. Cavernous: Normal. Cerebral: Normal. Middle Cerebral Arteries: Right: No aneurysm, occlusion or significant stenosis. Left: No aneurysm, occlusion or significant stenosis. Anterior Cerebral Arteries: Right: No aneurysm, occlusion or significant stenosis. Left: No aneurysm, occlusion or significant stenosis. Posterior cerebral Arteries: Right: No aneurysm, occlusion or significant stenosis. Left: No aneurysm, occlusion or significant stenosis. Vertebral Arteries: Right: No aneurysm, occlusion or significant stenosis. Left: No aneurysm, occlusion or significant stenosis. Basilar Artery: No aneurysm, occlusion or significant stenosis. CTA Neck W: Common Carotid: Right no aneurysm, occlusion or significant stenosis. Left: . No aneurysm, occlusion or significant stenosis. External Carotid: Right: No aneurysm, occlusion or significant stenosis. Left: No aneurysm, occlusion or significant stenosis. Internal Carotid: Right: Irregular calcific plaque at the origin causing approximate 70-80 percent diameter stenosis. D istally the vessel shows no plaque. No aneurysm, occlusion or significant stenosis. Left: Irregular calcified plaque at the origin causing approximately 50 - 60 percent diameter steno sis. Distally the vessel shows no plaque. No aneurysm, occlusion or dissection. Vertebral Artery: Right: Dominant. No aneurysm, occlusion or significant stenosis. Left: No aneurysm, occlusion or significant stenosis. Mild calcification at the aortic arch. Lung Apices: Normal. Bones: Normal. Soft Tissues: Normal. IMPRESSION: 1. Normal CTA examination of the [place] of [place]. 2. Unremarkable CT Head. 3. Heavy calcific plaque at the common carotid bulbs and proximal internal carotid arteries causing a pproximately 70-80 percent diameter stenosis on the right and 50 to 60 percent diameter stenosis on t he left. No evidence of dissection. Results of this exam have been verbally communicated with the emergency department provider. RADIATION DOSE DELIVERED: 1,879.74mGy.cm Total DLP DATA REPOSITORY: All CT scans at this facility are submitted to the National Radiology Data Registry (NRDR) Dose Index Registry (DIR) with the [employer] (A[employer]). RADIATION OPTIMIZATION: All CT scans at this facility use at least one of these dose optimization te chniques: automated exposure control; mA and/or kV adjustment per patient size (includes targeted exa ms where dose is matched to clinical indication); or iterative reconstruction.
--- NOTE | 2021-12-30 12:10 | DI.RAD_ITS ---
Exam(s) XR CHEST 2V PA LATERAL EXAM: XR CHEST 2V PA LATERAL CLINICAL HISTORY: dizziness, r/o acute disease TECHNIQUE: 2D digital imaging was performed. COMPARISON: CR THORACIC SPINE from 10/16/2016 FINDINGS: MEDIASTINUM: Normal. HEART: Normal. PULMONARY VASCULATURE: Normal. LUNGS: Clear. PLEURAL SPACE: No pleural effusion or pneumothorax. BONE:Unremarkable for age. IMPRESSION: No acute abnormality. DATA REPOSITORY: RADIATION DOSE DELIVERED:
[2021-12-30] MEDS: Clopidogrel 300 MG TAB PO (13:23)
--- NOTE | 2021-12-30 13:25 | HPE_ITS ---
Date of service: 12/30/21 Time of Service: 13:28 Assessment and Plan Assessment and plan (1) TIA (transient ischemic attack): Status: Acute (2) Tobacco use disorder: Status: Chronic (3) Hyperlipidemia: Status: Chronic Qualifiers: Hyperlipidemia type: unspecified Qualified Code(s): E78.5 - Hyperlipidemia, unspecified (4) Essential hypertension: Status: Chronic (5) Acquired hypothyroidism: Status: Chronic (6) Ocular migraine: Status: Chronic (7) Carotid stenosis: Status: Acute [facility] All Active Problems (Updated 12/30/21 @ 13:31 by Kevin Pickett MD) Carotid stenosis (Acute) TIA (transient ischemic attack) (Acute) Hypertension (Chronic) Dizziness (Acute) Tobacco use disorder (Chronic) IFG (impaired fasting glucose) (Chronic 01/18/17) History of colon polyps (Acute) Elevated plasma metanephrines (Chronic) Hot flashes (Chronic) Cervical radiculitis (Acute) Ocular migraine (Chronic) Carpal tunnel syndrome of left wrist (Chronic) Vitamin D deficiency (Chronic) Hyperlipidemia (Chronic 04/17/02) 12/2020 labs: 10-year ASCVD risk = ~7.6% Essential hypertension (Chronic 05/17/13) Diverticulosis (Chronic 11/13/15) Atrophic vaginitis (Chronic 03/09/17) Rx with Estring. Acquired hypothyroidism (Chronic 04/17/99) s/p radioablation for Graves hyper 1997; h/o exophthalmos L eye Rx 6 wk prednisone 1999; pt's TSH goal: ~2 Active Problem List Tobacco use disorder (Chronic) IFG (impaired fasting glucose) (Chronic 01/18/17) History of colon polyps (Acute) Elevated plasma metanephrines (Chronic) Hot flashes (Chronic) Cervical radiculitis (Acute) Ocular migraine (Chronic) Carpal tunnel syndrome of left wrist (Chronic) Vitamin D deficiency (Chronic) Hyperlipidemia (Chronic 04/17/02) Essential hypertension (Chronic 05/17/13) Diverticulosis (Chronic 11/13/15) Atrophic vaginitis (Chronic 03/09/17) Acquired hypothyroidism (Chronic 04/17/99) Medical History Colonic adenoma (10/17/15) repeat 2020 Graves' ophthalmopathy TIA (transient ischemic attack) (04/29/15) Pt. states this is incorrect, pt. states this was ruled out by the neurolog ist (Omar Perez) Tubular adenoma of colon Surgical History Arthroplasty of knee (08/04/06) arthroscopy bunionectomy (09/20/15) Dr Valverde R Cholecystectomy (11/16/05) laparoscopic EGD - MAC (07/21/15) hammer toe repair (09/20/15) R 2nd toe arthrodesis Hx of colonoscopy Open Carpal Tunnel release (11/01/17) [facility] Trigger Finger release (05/02/13) Dr. Mcwilliams Family History Mother COPD (chronic obstructive pulmonary disease) Cerebral aneurysm Dementia Heart disease Hypertension Father , prostate ca at age 86. Diabetes Personal history of malignant neoplasm Metastasized prostate CA Heart disease Hypertension Social History Smoking/Tobacco Use Status: Current every day Tobacco Type: cigarettes Smoking packs per day: 0.75 Smoking cigarettes per day: 15.0 Years smoked: 40 Smoking pack-years: 30.00 Tobacco: How many years used: 30 Quit status: not considering quitting Smoking risk assessment performed?: Yes Alcohol Intake: current Alcohol Intake frequency: 0-2 drinks per day Alcohol type: wine Drug use: Never Substance use type: does not use Adopted: No Caregiver/Support person: No Foster care: No Household members: spouse Housing: apartment Communication Needs: None Education Level: college Do you need help understanding health information?: Rarely 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 Pets and animals: Yes Pets and animals: cat(s) Sexually active: Yes Do you think of yourself as: straight/heterosexual Current gender identity: female What is your relationship status?: How often do you talk on the phone with friends or family?: three or more times per week How often do you get together with friends or relatives?: twice per week Do you belong to any clubs or organized social groups?: no Panel score (0-1 are the most socially isolated patients): 2 Special violet needs: No Seatbelt use: always Helmet use: No Drive intox or ride w/intox tour bus driver/guide: No Water heater temp set <120 deg: Yes Working smoke detector in home: Yes Fire extinguisher in home: Yes Carbon monox detector in home: Yes Firearms in home: No Do you feel safe at home: Yes Do you feel safe in your relationship?: Yes Victim of physical abuse: No Victim of emotional abuse: No Victim of sexual abuse: No History History 0 Para Hx # Term Pregnancies Multiple births Hx # Pregnancies Ectopic pregnancies AB induced Hx Number of Living Children AB spontaneous Meds Allergies and Home Medications Allergies Allergy/AdvReac Type Severity Reaction Status Date / Time lisinopril AdvReac Intermediate cough Verified 12/30/21 10:35 propranolol AdvReac Intermediate stomach Verified 12/30/21 10:35 rosuvastatin calcium AdvReac Intermediate GI, Muscle Verified 12/30/21 10:35 [From Crestor] venlafaxine AdvReac Unknown [place]/Vomi Verified 12/30/21 10:35 ting Home Medications Medication Instructions Recorded Confirmed Type aspirin 81 mg tablet,delayed 81 mg PO DAILY tab 01/07/16 12/30/21 History release amlodipine 10 mg tablet (Norvasc) 10 mg PO DAILY #90 tab-cap 03/13/21 12/30/21 Rx levothyroxine 175 mcg tablet 175 mcg PO DAILY #90 tab-cap 03/13/21 12/30/21 Rx Results Labs Result diagrams: 12/30/21 10:30 12/30/21 10:30 Labs: Laboratory Results - last 24 hr 12/30/21 12/30/21 10:30 10:30 WBC 9.36 RBC 5.49 H Hgb 17.6 H Hct 52.5 H MCV 95.6 H MCH 32.1 MCHC 33.5 RDW 12.1 Plt Count 233 MPV 10.0 Immature Gran % 0.4 Neutrophils % 62.1 Lymphocytes % 29.7 Monocytes % 6.7 Eosinophils % 0.4 Basophils % 0.7 Nucleated RBC % 0 Absolute Neutrophils 5.80 Absolute Lymphocytes 2.78 Absolute Monocytes 0.63 Absolute Eosinophils 0.04 Absolute Basophils 0.07 Sodium 133 L Potassium 3.9 Chloride 96 L Carbon Dioxide 25.7 Anion Gap 11.3 H BUN 8 Creatinine 0.6 Estimated GFR/1.73 m2 >= 60.00 Glucose 135 H Calcium 9.4 Magnesium 2.0 Total Bilirubin 0.6 AST 26 ALT 26 Alkaline Phosphatase 122 H Troponin I < 50 Total Protein 8.9 H Albumin 4.7 Last Vital Signs Temp 36.7 C 12/30/21 10:30 Pulse 62 12/30/21 12:52 Resp 7 L 12/30/21 12:52 BP 145/80 H 12/30/21 12:52 Pulse Ox 99 12/30/21 12:52 PAWSS Have you Been Recently Intoxicated or Drunk Within the Last 30 days?: No Have you Ever Experienced Previous Episodes of Alcohol Withdrawal?: No Have you ever Experienced Withdrawal Seizures?: No Have you ever Experienced Delirium Tremens(DT)s?: No Have you ever undergone Alcohol Rehabilitation Treatment (i.e, inpt ot outpatient treatment programs)?: No Have you ever Experienced Blackouts?: No Have you ever Combined Alcohol with other Downers within the last 90 days?: No Have you ever Combined Alcohol with any other Substance of Abuse during the last 90 days?: No Positive Blood Alcohol level on Presentation? [PCS.BAL]: No Evidence of Increased Autonomic Activity (i.e. HR>120, tremor, sweating, agitation, nausea)?: No Result: 0
[2021-12-30 13:48] LABS: Source Nasal/Nares
[2021-12-30 14:26] LABS: COVID-19 PCR Negative (Negative)
--- NOTE | 2021-12-30 14:41 | W.PM.HP.N ---
Date of service: 12/30/21 Time of Service: 14:41 Assessment and Plan Assessment and plan (1) Carotid stenosis: Status: Acute Assessment and plan: Discussed with Dr Tian and [facility] vascular surgeon. Agreed with DAPT treatment. Initiate atorvastatin 40-80mg nightly if patient agreeable. She had GI upset and BLE muscle symptoms with rosuvastatin in the past. She is willing to try atorvastatin and will initiate 40mg nightly. Vascular surgery scheduling an appt for evaluation. Planning intervention in the post-symptom onset timeframe of 3-14 days. If Vascular Surgery hasn't contacted us or the patient by late morning tomorrow, 12/31, call their office: [phone]. (2) TIA (transient ischemic attack): Status: Acute Assessment and plan: Proximal L internal carotid stenosis on US and CTA. CT head neg. MRI head neg. On ASA 81 mg at time of presentation. Dr Tian discussed the patient with ED provider. Plavix loading dose administered. Plavix 75mg daily starting tomorrow. Echocardiogram result unremarkable. Atorvastatin 40mg nightly initiated. . (3) Essential hypertension: Status: Chronic Assessment and plan: Presenting BP was 191/96 She is on amlodipine 10mg daily. Permissive HTN. Low dose lopressor, 2.5mg IV for SBP > 195. (4) Acquired hypothyroidism: Status: Chronic Assessment and plan: Last TSH in chart was from December 2020: 3.56 PCP visit in Sep 2021; TSH ordered, but no result in chart. Her PCP does use this EMR Ordered TSH / pending. (5) Tobacco use disorder: Status: Chronic Assessment and plan: PRN nicoderm patch. Encourage cessation. History of Present Illness History of Present Illness Chief Complaint: Headache, lightheadedness, nausea Narrative: This is a 61 yo female with a PMH of HTN, HLD, hypothyroidism,tobacco abuse disorder. She presented to the ED after experiencing sudden onset of lightheadedness, headache, nausea while driving. She presented to the ED within an hour of the onset of these symptoms. Her presenting BP was 191/96. No focal neurologic findings on exam. Hgb 17.6, Na 133, K 3.9, creatinine 0.6. Troponin neg. During her ED workup she developed R hand paresthesia that last for appx 30 mins then resolved. Her presenting symptoms also resolved while in the ED. CT head negative for ischemic findings. CTA head negative, CTA neck showed 70-80% stenosis of the left proximal interal carotid artery. MRI head was negative for ischemic findings. Echocardiogram unremarkable with EF of 65% and not ventricular septal defect. Carotid US showed a greater than 70% stenosis of the left proximal internal carotid. She was given a loading dose of plavix. Dr Tian consulted. Admitted for observation. Review of Systems All systems reviewed & are unremarkable except as noted in HPI and below PFSH All Active Problems Carotid stenosis (Acute) TIA (transient ischemic attack) (Acute) Hypertension (Chronic) Dizziness (Acute) Tobacco use disorder (Chronic) IFG (impaired fasting glucose) (Chronic 01/18/17) History of colon polyps (Acute) Elevated plasma metanephrines (Chronic) Hot flashes (Chronic) Cervical radiculitis (Acute) Ocular migraine (Chronic) Carpal tunnel syndrome of left wrist (Chronic) Vitamin D deficiency (Chronic) Hyperlipidemia (Chronic 04/17/02) 12/2020 labs: 10-year ASCVD risk = ~7.6% Essential hypertension (Chronic 05/17/13) Diverticulosis (Chronic 11/13/15) Atrophic vaginitis (Chronic 03/09/17) Rx with Estring. Acquired hypothyroidism (Chronic 04/17/99) s/p radioablation for Graves hyper 1997; h/o exophthalmos L eye Rx 6 wk prednisone 1999; pt's TSH goal: ~2 Medical History Colonic adenoma (10/17/15) repeat 2020 Graves' ophthalmopathy TIA (transient ischemic attack) (04/29/15) Pt. states this is incorrect, pt. states this was ruled out by the neurologist (Omar Perez) Tubular adenoma of colon Surgical History Arthroplasty of knee (08/04/06) arthroscopy bunionectomy (09/20/15) Dr Valverde R Cholecystectomy (11/16/05) laparoscopic EGD - MAC (07/21/15) hammer toe repair (09/20/15) R 2nd toe arthrodesis Hx of colonoscopy Open Carpal Tunnel release (11/01/17) [facility] Trigger Finger release (05/02/13) Dr. Mcwilliams Family History Mother COPD (chronic obstructive pulmonary disease) Cerebral aneurysm Dementia Heart disease Hypertension Father , prostate ca at age 86. Diabetes Personal history of malignant neoplasm Metastasized prostate CA Heart disease Hypertension Social History Smoking/Tobacco Use Status: Current every day Tobacco Type: cigarettes Smoking packs per day: 0.75 Smoking cigarettes per day: 15.0 Years smoked: 40 Smoking pack-years: 30.00 Tobacco: How many years used: 30 Quit status: not considering quitting Smoking risk assessment performed?: Yes Alcohol Intake: current Alcohol Intake frequency: 0-2 drinks per day Alcohol type: wine Drug use: Never Substance use type: does not use Adopted: No Caregiver/Support person: No Foster care: No Household members: spouse Housing: apartment Communication Needs: None Education Level: college Do you need help understanding health information?: Rarely 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 Pets and animals: Yes Pets and animals: cat(s) Sexually active: Yes Do you think of yourself as: straight/heterosexual Current gender identity: female What is your relationship status?: How often do you talk on the phone with friends or family?: three or more times per week How often do you get together with friends or relatives?: twice per week Do you belong to any clubs or organized social groups?: no Panel score (0-1 are the most socially isolated patients): 2 Special violet needs: No Seatbelt use: always Helmet use: No Drive intox or ride w/intox truck driver: No Water heater temp set <120 deg: Yes Working smoke detector in home: Yes Fire extinguisher in home: Yes Carbon monox detector in home: Yes Firearms in home: No Do you feel safe at home: Yes Do you feel safe in your relationship?: Yes Victim of physical abuse: No Victim of emotional abuse: No Victim of sexual abuse: No History History 0 Para Hx # Term Pregnancies Multiple births Hx # Pregnancies Ectopic pregnancies AB induced Hx Number of Living Children AB spontaneous Meds Allergies and Home Medications Allergies Allergy/AdvReac Type Severity Reaction Status Date / Time lisinopril AdvReac Intermediate cough Verified 12/30/21 10:35 propranolol AdvReac Intermediate stomach Verified 12/30/21 10:35 rosuvastatin calcium AdvReac Intermediate GI, Muscle Verified 12/30/21 10:35 [From Crestor] venlafaxine AdvReac Unknown [place]/Vomi Verified 12/30/21 10:35 ting Home Medications Medication Instructions Recorded Confirmed Type aspirin 81 mg tablet,delayed 81 mg PO DAILY tab 01/07/16 12/30/21 History release amlodipine 10 mg tablet (Norvasc) 10 mg PO DAILY #90 tab-cap 03/13/21 12/30/21 Rx levothyroxine 175 mcg tablet 175 mcg PO DAILY #90 tab-cap 03/13/21 12/30/21 Rx omeprazole 20 mg capsule,delayed 20 mg PO DAILY 12/30/21 12/30/21 History release Exam Narrative Exam Narrative: Pleasant female sitting in chair. Const General: cooperative and no acute distress Nutritional Appearance: average body habitus Orientation: alert and oriented x3 Eyes General: appearance normal, both eyes and all related structures Sclera: sclerae normal Neck Neck: full ROM and no JVD Resp Effort & Inspection: normal respiratory effort Auscultation: clear to auscultation bilaterally Cardio Rate: regular rate Rhythm: regular rhythm Heart Sounds: S1 normal and S2 normal GI Palpation: soft and nontender Auscultation: normal bowel sounds Skin General skin exam: no rashes or lesions noted Neuro General: no focal motor deficits Cranial Nerves: facial strength normal Cognition: normal cognition Speech: speech normal Gait: normal gait Sensory Exam: no sensory deficits noted Extrem General: no pedal edema and no calf tenderness Results Labs Result diagrams: 12/30/21 10:30 12/30/21 10:30 Labs: Laboratory Results - last 24 hr 12/30/21 12/30/21 12/30/21 10:30 10:30 13:40 WBC 9.36 RBC 5.49 H Hgb 17.6 H Hct 52.5 H MCV 95.6 H MCH 32.1 MCHC 33.5 RDW 12.1 Plt Count 233 MPV 10.0 Immature Gran % 0.4 Neutrophils % 62.1 Lymphocytes % 29.7 Monocytes % 6.7 Eosinophils % 0.4 Basophils % 0.7 Nucleated RBC % 0 Absolute Neutrophils 5.80 Absolute Lymphocytes 2.78 Absolute Monocytes 0.63 Absolute Eosinophils 0.04 Absolute Basophils 0.07 Sodium 133 L Potassium 3.9 Chloride 96 L Carbon Dioxide 25.7 Anion Gap 11.3 H BUN 8 Creatinine 0.6 Estimated GFR/1.73 m2 >= 60.00 Glucose 135 H Calcium 9.4 Magnesium 2.0 Total Bilirubin 0.6 AST 26 ALT 26 Alkaline Phosphatase 122 H Troponin I < 50 Total Protein 8.9 H Albumin 4.7 COVID-19 Source Nasal/Nares SARS-CoV-2 (PCR) Negative Last Vital Signs Temp 36.6 C 12/30/21 14:24 Pulse 70 12/30/21 14:24 Resp 14 12/30/21 14:24 BP 153/65 H 12/30/21 14:24 Pulse Ox 96 12/30/21 14:24 PAWSS Have you Been Recently Intoxicated or Drunk Within the Last 30 days?: No Have you Ever Experienced Previous Episodes of Alcohol Withdrawal?: No Have you ever Experienced Withdrawal Seizures?: No Have you ever Experienced Delirium Tremens(DT)s?: No Have you ever undergone Alcohol Rehabilitation Treatment (i.e, inpt ot outpatient treatment programs)?: No Have you ever Experienced Blackouts?: No Have you ever Combined Alcohol with other Downers within the last 90 days?: No Have you ever Combined Alcohol with any other Substance of Abuse during the last 90 days?: No Positive Blood Alcohol level on Presentation? [PCS.BAL]: No Evidence of Increased Autonomic Activity (i.e. HR>120, tremor, sweating, agitation, nausea)?: No Result: 0
[2021-12-30 14:49] LABS: Lab Add On Test DONE
[2021-12-30] MEDS: LORazepam 2 MG/ML VIAL 1 MG IVP (16:04)
[2021-12-30] MEDS: Normal Saline Flush 10 ML SYR (16:05)
--- NOTE | 2021-12-30 16:06 | NCONE_ITS ---
Date of service: 12/30/21 Time of Service: 16:06 Assessment and Plan Assessment and plan (1) TIA (transient ischemic attack): Status: Acute (2) Carotid stenosis: Status: Acute Assessment and plan: Ms. Hawk is a 61 year-old, right-handed woman who presented with lightheadedness, nausea, and headache followed by transient right hand numbness. Her symptoms are concerning for TIA. Work-up was significant for a severe L carotid stenosis which is the most likely etiology. I discussed this with her and showed her the images. She should continue ASA 81mg daily + clopidogrel 75mg daily. Continue permissive hypertension. Consult [facility] Vascular Surgery regarding L ICA stenosis. Consider the addition of a statin though in my conversation with her, she was hesitant. If she develops any new clinical symptoms overnight, would consider switching clopidogrel to IV heparin drip (no bolus). We discussed smoking cessation. She should follow-up in the neurology clinic in 4-6 weeks. Qualifiers: Laterality: bilateral Qualified Code(s): I65.23 - Occlusion and stenosis of bilateral carotid arteries History of Present Illness History of Present Illness Chief Complaint: TIA Narrative: Handedness: right. Ms. Hawk is a 61 year-old woman with hypertension, hyperlipidemia, cigarette smoking, Grave's disease now hypothyroid, and a history of typical and atypical migraine. While driving today, she developed lightheadedness, nausea, and then a headache. She presented promptly to the ER at which time she developed right hand/arm numbness and tingling. Her symptoms resolved about 60min after onset. She is on aspirin 81mg daily at baseline. She is not on a statin noting ADRs to previous trial in the past. She was not a candidate for tPA due to resolving symptoms. Her initial BP was 191/96. She underwent the work-up as below. She was given 300mg clopidogrel in the ER. She otherwise has been having increased frequency of her typical ocular migraines in the last few weeks (manifested by visual aura and minor bitemporal head pain), such that she has daily symptoms. She works as a home health nurse. Work-up: -CTH (12/30/21): no acute findings. I reviewed these images personally and this is my personal interpretation. -CTA head/neck (12/30/21): severe L ICA stenosis with mild R ICA stenosis. I reviewed these images personally and this is my personal interpretation. -MRI brain (12/30/21): unremarkable. I reviewed these images personally and this is my personal interpretation. -CUS (12/30/21): L ICA stenosis >70%. R ICA stenosis 50-60%. -TTE (12/30/21): EF 65%, no wall motion abnormalities. LA normal. -Labs (01/01/21): LDL 138, A1c 5.6 Review of Systems Constitutional Constitutional: Reports as per HPI [facility] All Active Problems (Updated 12/30/21 @ 19:45 by Ruth Tian MD) Carotid stenosis (Acute) TIA (transient ischemic attack) (Acute) Hypertension (Chronic) Dizziness (Acute) Tobacco use disorder (Chronic) IFG (impaired fasting glucose) (Chronic 01/18/17) History of colon polyps (Acute) Elevated plasma metanephrines (Chronic) Hot flashes (Chronic) Cervical radiculitis (Acute) Ocular migraine (Chronic) Carpal tunnel syndrome of left wrist (Chronic) Vitamin D deficiency (Chronic) Hyperlipidemia (Chronic 04/17/02) 12/2020 labs: 10-year ASCVD risk = ~7.6% Essential hypertension (Chronic 05/17/13) Diverticulosis (Chronic 11/13/15) Atrophic vaginitis (Chronic 03/09/17) Rx with Estring. Acquired hypothyroidism (Chronic 04/17/99) s/p radioablation for Graves hyper 1997; h/o exophthalmos L eye Rx 6 wk prednisone 1999; pt's TSH goal: ~2 Medical History Colonic adenoma (10/17/15) repeat 2020 Graves' ophthalmopathy TIA (transient ischemic attack) (04/29/15) Pt. states this is incorrect, pt. states this was ruled out by the neurologist (Omar Perez) Tubular adenoma of colon Surgical History Arthroplasty of knee (08/04/06) arthroscopy bunionectomy (09/20/15) Dr Nicolle Marx Cholecystectomy (11/16/05) laparoscopic EGD - MAC (07/21/15) hammer toe repair (09/20/15) R 2nd toe arthrodesis Hx of colonoscopy Open Carpal Tunnel release (11/01/17) [facility] Trigger Finger release (05/02/13) Dr. Mcwilliams Family History Mother COPD (chronic obstructive pulmonary disease) Cerebral aneurysm Dementia Heart disease Hypertension Father , prostate ca at age 86. Diabetes Personal history of malignant neoplasm Metastasized prostate CA Heart disease Hypertension Social History Smoking/Tobacco Use Status: Current every day Tobacco Type: cigarettes Smoking packs per day: 0.75 Smoking cigarettes per day: 15.0 Years smoked: 40 Smoking pack-years: 30.00 Tobacco: How many years used: 30 Quit status: not considering quitting Smoking risk assessment performed?: Yes Alcohol Intake: current Alcohol Intake frequency: 0-2 drinks per day Alcohol type: wine Drug use: Never Substance use type: does not use Adopted: No Caregiver/Support person: No Foster care: No Household members: spouse Housing: apartment Communication Needs: None Education Level: college Do you need help understanding health information?: Rarely 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 Pets and animals: Yes Pets and animals: cat(s) Sexually active: Yes Do you think of yourself as: straight/heterosexual Current gender identity: female What is your relationship status?: How often do you talk on the phone with friends or family?: three or more times per week How often do you get together with friends or relatives?: twice per week Do you belong to any clubs or organized social groups?: no Panel score (0-1 are the most socially isolated patients): 2 Special violet needs: No Seatbelt use: always Helmet use: No Drive intox or ride w/intox company driver: No Water heater temp set <120 deg: Yes Working smoke detector in home: Yes Fire extinguisher in home: Yes Carbon monox detector in home: Yes Firearms in home: No Do you feel safe at home: Yes Do you feel safe in your relationship?: Yes Victim of physical abuse: No Victim of emotional abuse: No Victim of sexual abuse: No History History 0 Para Hx # Term Pregnancies Multiple births Hx # Pregnancies Ectopic pregnancies AB induced Hx Number of Living Children AB spontaneous Visit Medication and Allergies Active Medications Generic Name Dose Route Start Last Admin Trade Name Freq PRN Reason Stop Dose Admin Acetaminophen 0 mg 12/30/21 13:15 Acetaminophen 325 Mg Tab PO Q4H PRN PRN Amlodipine Besylate 10 mg 12/31/21 08:30 Amlodipine 10 Mg Tab PO DAILY [facility] Aspirin 81 mg 12/31/21 08:30 Aspirin E.C. 81 Mg Tabec PO DAILY [facility] Clopidogrel Bisulfate 75 mg 12/31/21 08:30 Clopidogrel 75 Mg Tab PO DAILY [facility] Dimethicone/Zinc Oxide 0 gm 12/30/21 13:15 Dimas Protect Cream 142 Gm Tube TP PRN PRN Heparin Sodium (Porcine) 5,000 units 12/30/21 14:00 12/30/21 16:03 Heparin 5,000 Units/Ml Vial SC Not Given Q8H [facility] Levothyroxine Sodium 175 mcg 12/31/21 06:00 Levothyroxine 175 Mcg Tab PO DAILY@0600 [facility] Metoprolol Tartrate 2.5 mg 12/30/21 14:00 Metoprolol 5 Mg/5 Ml Vial IVP Q6H [facility] Nicotine 14 mg 12/30/21 14:42 Nicotine 14 Mg/24 Hr Patch TD DAILY PRN PRN Polyethylene Glycol 17 gm 12/30/21 13:15 Polyethylene Glycol 3350 17 Gm Packet PO DAILY PRN PRN Constipation Allergies lisinopril Adverse Reaction (Intermediate, Verified 12/30/21 10:35) cough propranolol Adverse Reaction (Intermediate, Verified 12/30/21 10:35) stomach rosuvastatin calcium [From Crestor] Adverse Reaction (Intermediate, Verified 12/30/21 10:35) GI, Muscle venlafaxine Adverse Reaction (Unknown, Verified 12/30/21 10:35) [place]/Vomiting Exam Narrative Exam Narrative: Physical Exam: Gen: Patient of apparent stated age, NAD Head and face: no facial or cranial abnormalities Neck: Supple, no meningismus, no occipital tenderness CV: + S1, S2, RRR, no murmur Resp: CTA B/L Abd: soft, nontender, nondistended Ext: No edema. No clubbing or cyanosis. No bony deformity. Neuro Exam: Language: fluency, naming, repetition, and comprehension intact; Mental Status: AAOx3, current events intact, fund of knowledge intact; Speech: no dysarthria Cranial nerves: Funduscopy: not performed CN II: visual bergman intact CN III, IV, : extraocular movements intact, no nystagmus, pupils symmetric and reactive to light CN V: face sensation intact to LT CN VII: no facial asymmetry noted CN VIII: hearing intact bilaterally CN IX, X: palate rises symmetrically CN XI: trapezius/SCM 5/5 bilaterally CN XII: protrudes tongue symmetrically Sensory: intact to LT in all extremities Motor: bulk and tone intact. Fine motor movements intact bilaterally. No pronator drift. Strength 5/5 throughout including the deltoids, biceps, triceps, wrist extensors, hip flexors, knee flexors, knee extensors, ankle flexors, and ankle extensors. Reflexes: 2+ at the biceps, triceps, brachioradialis, patella, and achilles tendons bilaterally; toes down going bilaterally; Coordination: FTN and HTS intact bilaterally Gait: normal gait; Results Last Vital Signs Temp 98.2 F 12/30/21 15:56 Pulse 76 12/30/21 15:56 Resp 20 12/30/21 15:56 BP 159/91 H 12/30/21 15:56 Pulse Ox 98 12/30/21 15:56 Labs Result diagrams: 12/30/21 10:30 12/30/21 10:30 Labs: Laboratory Results - last 24 hr 12/30/21 12/30/21 12/30/21 10:30 10:30 10:30 WBC 9.36 RBC 5.49 H Hgb 17.6 H Hct 52.5 H MCV 95.6 H MCH 32.1 MCHC 33.5 RDW 12.1 Plt Count 233 MPV 10.0 Immature Gran % 0.4 Neutrophils % 62.1 Lymphocytes % 29.7 Monocytes % 6.7 Eosinophils % 0.4 Basophils % 0.7 Nucleated RBC % 0 Absolute Neutrophils 5.80 Absolute Lymphocytes 2.78 Absolute Monocytes 0.63 Absolute Eosinophils 0.04 Absolute Basophils 0.07 Sodium 133 L Potassium 3.9 Chloride 96 L Carbon Dioxide 25.7 Anion Gap 11.3 H BUN 8 Creatinine 0.6 Estimated GFR/1.73 m2 >= 60.00 Glucose 135 H Calcium 9.4 Magnesium 2.0 Total Bilirubin 0.6 AST 26 ALT 26 Alkaline Phosphatase 122 H Troponin I < 50 Total Protein 8.9 H Albumin 4.7 TSH COVID-19 Source SARS-CoV-2 (PCR) Add-On Test Request DONE 12/30/21 12/30/21 10:30 13:40 WBC RBC Hgb Hct MCV MCH MCHC RDW Plt Count MPV Immature Gran % Neutrophils % Lymphocytes % Monocytes % Eosinophils % Basophils % Nucleated RBC % Absolute Neutrophils Absolute Lymphocytes Absolute Monocytes Absolute Eosinophils Absolute Basophils Sodium Potassium Chloride Carbon Dioxide Anion Gap BUN Creatinine Estimated GFR/1.73 m2 Glucose Calcium Magnesium Total Bilirubin AST ALT Alkaline Phosphatase Troponin I Total Protein Albumin TSH 7.70 H COVID-19 Source Nasal/Nares SARS-CoV-2 (PCR) Negative Add-On Test Request
[2021-12-30] MEDS: Atorvastatin 40 MG TAB PO (19:21)
[2021-12-31] VITALS: PULSE 65
[2021-12-31 01:29] VITALS: BP 150/79; PULSE 63; RESP 17; TEMP 36.6; O2SAT 99
[2021-12-31 01:48] VITALS: BP 150/79; PULSE 63
[2021-12-31] MEDS: Levothyroxine 175 MCG TAB PO (05:31)
[2021-12-31 06:54] LABS: Anion Gap 7.2 mmol/L (3-11); BUN 11 mg/dL (7-18); CO2 27.8 mmol/L (21.0-32.0); CREATININE 0.6 mg/dL (0.55-1.02); Calcium 8.9 mg/dL (8.5-10.1); Calculated LDL 134 mg/dL (<100); Chloride 101 mmol/L (98-107); Cholesterol 258 mg/dL (<200); Glucose 107 mg/dL (74-106); HDL Cholesterol 108 mg/dL (40-60); Potassium 4.2 mmol/L (3.5-5.1); Sodium 136 mmol/L (136-145); Triglyceride 80 mg/dL (<150)
[2021-12-31 06:55] VITALS: PULSE 61
[2021-12-31] MEDS: Clopidogrel 75 MG TAB PO (07:33)
[2021-12-31] MEDS: Aspirin E.C. 81 MG TABEC PO (07:33)
[2021-12-31] MEDS: amLODIPine 10 MG TAB PO (07:33)
[2021-12-31 08:57] VITALS: BP 144/85; PULSE 60; RESP 18; TEMP 36.4; O2SAT 98
[2021-12-31 10:28] VITALS: PULSE 67
--- NOTE | 2021-12-31 12:56 | W.PM.DS.N ---
Date of service: 12/31/21 Time of Service: 12:56 DS: Diagnosis Discharge Diagnosis (1) TIA (transient ischemic attack): Status: Acute Asessment and Plan: No CVA on MRI. Right sided hand/arm paresthesias resolved. Patient initially presented w/ sx of headache, nausea and vomiting and elevated BP. All of these symptoms have resolved along w/ improvement in her BP. Echocardiogram was normal. Telemetry did not show any atrial dysrhythmias. CTA of head and neck demonstrated bilateral carotid artery stensosis (70-80% prox. SIERRA and 50 -60% prox LICA). patient has been referred to [facility] (see below). Patient started on atorvastatin 40 mg and plavix 75 mg (after loading dose of 300 mg) and kept on her usual ASA 81 mg daily. Patient was seen by neurology, Dr. Tian (see her consult note from 12/30 for details). (2) Carotid stenosis: Status: Acute Asessment and Plan: patient begun on atorvastatin 40 mg dailly and plavix 75 mg daily and maintained on ASA 81 mg daliy. Patient has been referred to [facility] vascular service for appt on 01/01 at 3 pm. Discharge Plan Disposition Patient Disposition: HOME Condition: Improving Discharge Details Reason For Visit: TIA Admit Date/Time: 12/30/21 13:15 Admit Provider: Kevin Pickett Attending Provider: Kevin Pickett Primary Care Provider: Nicole Moser [facility] Course Hospital Course: This is a 61 yo female with a PMH of HTN, HLD, hypothyroidism,tobacco abuse disorder.? She presented to the ED after experiencing sudden onset of lightheadedness, headache, nausea while driving.? She presented to the ED within an hour of the onset of these symptoms.? Her presenting BP was 191/96.? No focal neurologic findings on exam.? Hgb 17.6, Na 133, K 3.9, creatinine 0.6. Troponin neg.? During her ED workup she developed R hand paresthesia that last for appx 30 mins then resolved.? Her presenting symptoms also resolved while in the ED. CT head negative for ischemic findings.? CTA head negative, CTA neck showed 70-80% stenosis of the left proximal interal carotid artery.? MRI head was negative for ischemic findings.? Echocardiogram unremarkable with EF of 65% and not ventricular septal defect.? Carotid US showed a greater than 70% stenosis of the left proximal internal carotid. She was given a loading dose of plavix.? Dr Tian consulted.? Admitted for observation. Patient was kept on Plavix 75 mg daily after her loading dose of 300 mg and she was maintained on ASA 81 mg daily. [facility] vascular was consulted via telephone consult and they recommend close follow up with them as outpatient to evaluate her severe carotid stenosis. she was given an appointment w/ [facility] vascular for 01/01/22 at 3 pm. She was seen by Dr. Ruth Tian, neurology on 12/30. See her note for details. She recommended allowing passive hypertension on admission and then gradual control of her hypertension. She recommended dual antiplatelet therapy w/ Plavix and ASA and re-trial of a statin (patient had side effects from Rosuvasatin, i.e. muscle aches and GI upset). She was begun on atorvastatin 40 mg and tolerated her first dose on 12/30. Her lipid profile was checked and her cholesterol was high at total 258 and LDL 134 w/ HDL 108 and triglycerides 80. Patient had no further neurologic symptoms after her arm/hand paresthesias resolved while in the ER. Patient was desiring to return home. She was counseled on he need to quit smoking and to try the atorvastatin. She will follow up w/ Dr. Tian in 4 weeks on 01/27 at 1:30 pm. She should follow up with her PCP later this week on 01/02. Her BP should be monitored and her medications should be adjusted accordingly. Goal would be a 10 to 15% reduction in her SBP over the next couple days and then titrate her meds to keep her SBP under 135 and DBP under 85 mm. BP at discharge was 144/85. Her peak BP during her hospitalization was 191/96 on 12/29/21. An Rx for nicotine patch replacement was given to her along w/ Rx for atorvastatin 40 mg q pm and Plavix 75 mg po q am. Her TSH was mildly elevated at 7.70. She was kept on her usual dose of levothyroxine 175 mcg daily. She was told to make sure she takes her levothyroxine on an empty stomach. She should have this repeat in 4 to 6 weeks to asses whether or not her tsh is rising. A 30 day event recorder was ordered d/t her complaints of palpitations. In setting of a smoker and prior Grave's disease, now taking levothyroxine replacement and in setting of TIA, it would be appropriate to screen her for atrial dysrhythmias. None were seen while she was on telemetry her at [facility] but she should be screened for PAF as a potential cause for her TIA. Home Meds and New Rx's Prescriptions: New atorvastatin 40 mg Tablet 40 mg PO QPM Qty: 30 1RF clopidogrel 75 mg Tablet 75 mg PO DAILY Qty: 30 1RF nicotine 14 mg/24 hr Patch 24 Hour 14 mg transdermal DAILY Qty: 28 1RF Continued amlodipine [Norvasc] 10 mg tablet 10 mg PO DAILY Qty: 90 3RF levothyroxine 175 mcg tablet 175 mcg PO DAILY Qty: 90 3RF Rx Instructions: Administer in the morning on an empty stomach, at least 30-60 minutes before food aspirin 81 MG tablet,delayed release (DR/EC) 81 mg PO DAILY 0RF Discontinued omeprazole 20 mg capsule,delayed release(DR/EC) 20 mg PO DAILY 0RF Label Comments: TAKE 1 CAPSULE DAILY BY MOUTH IN THE MORNING ATLEAST 30 MINUTES BEFORE FIRST MEAL Discharge Instructions Instructions: Transient Ischemic Attack (DC), How to Stop Smoking (DC), Low Fat Diet (DC), Heart Healthy Diet (DC), Carotid Artery Disease (DC) Stand Alone Forms: Nursing Discharge Form Referrals: [facility] [Outside] - 01/01/22 3:00 pm (You will be seeing Dr. Wilcox at [facility]ascular. You will have testing done at 3:00pm and then see the Doctor at 4:00 pm ) Nicole Moser NP [Primary Care Provider] - 01/02/22 10:30 am uRth Tian MD [ [facility] STAFF PHYSICIAN] - 01/27/22 1:30 pm Activity:: Activity as Tolerated Equipment/Supplies:: No Equipment Needed Diet:: low cholesterol Discharge Orders Discharge Orders: Discharge Order (Routine); Ordered 12/31/21 Ordered By: Murray Lincoln Other Ambulatory Orders: Cardiac Event Recorder (Routine) Timeframe: 1 Day Facility: [facility] - Location: Respiratory Therapy Ordered By: Murray Lincoln Discharge Data Discharge Date/Time-TO BE ENTERED AT DEPARTURE: 12/31/21 13:24 DS: Summary Time Spent with Patient providing and/or coordinating discharge services: Less than 30 minutes Status at Discharge Functional status at discharge: independent ambulation Overall status at discharge: patient is back to baseline Mental Status: mental status grossly normal Speech and Movement: speech and movement normal Mood: congruent mood Affect: normal affect Exam Narrative Exam Narrative: Middle-aged white female sitting up in her chair at rest she is alert and oriented person place time circumstance. No facial asymmetry no dysarthric speech. Full extraocular motion intact. Neck is supple nontender no JVD Lungs are clear to auscultation Heart is regular rate and rhythm without murmur rub or gallop. Motor exam reveals no focal motor deficits in either upper or lower extremities. She has normal sensation to light touch in both arms and both legs. No facial asymmetry and no facial paresthesias. Visual bergman not tested but no complaints of any deficits. Psych Mental Status: mental status grossly normal Speech and Movement: speech and movement normal Mood: congruent mood Affect: normal affect DS: Data Vitals/I&O Vitals and I&O: Vital Signs Temperature 36.4 C L 12/31/21 08:57 Temperature Source Tympanic 12/31/21 08:57 Pulse 67 12/31/21 10:28 Pulse Rhythm Regular 12/31/21 08:02 Pulse 67 12/30/21 13:35 Respiratory Rate 18 12/31/21 08:57 Respiratory Effort Non-Labored 12/31/21 08:02 Respiratory Depth Normal 12/31/21 08:02 Respiratory Pattern Normal 12/31/21 08:02 Blood Pressure 144/85 H 12/31/21 08:57 Blood Pressure Mean 86 12/30/21 14:01 Blood Pressure Position Supine 12/30/21 10:30 Pulse Oximetry 98 12/31/21 08:57 Oxygen Delivery Method Room Air 12/31/21 08:57 Oxygen Flow Rate 0 12/31/21 08:57 Pain Level 0 12/31/21 08:57 Intake & Output 12/30/21 12/31/21 12/31/21 23:59 11:59 23:59 Intake Total 1700 / 1700 Balance 1700 / 1700 Intake: IV 1100 / 1100 Oral 600 / 600 Other: Urine Appearance Clear Clear Comment independant to bathroom Per patient she voided in toilet Voiding Methods Toilet Toilet Data Completed and Pending Labs on day of discharge: Labs from last 24 hours 12/31/21 12/30/21 12/30/21 06:00 13:40 10:30 Sodium 136 Potassium 4.2 Chloride 101 Carbon Dioxide 27.8 Anion Gap 7.2 BUN 11 Creatinine 0.6 Estimated GFR/1.73 m2 >= 60.00 Glucose 107 H Calcium 8.9 Triglycerides 80 Total Cholesterol 258 H LDL Cholesterol, Calc 134 H HDL Cholesterol 108 TSH 7.70 H COVID-19 Source Nasal/Nares SARS-CoV-2 (PCR) Negative Add-On Test Request 12/30/21 10:30 Sodium Potassium Chloride Carbon Dioxide Anion Gap BUN Creatinine Estimated GFR/1.73 m2 Glucose Calcium Triglycerides Total Cholesterol LDL Cholesterol, Calc HDL Cholesterol TSH COVID-19 Source SARS-CoV-2 (PCR) Add-On Test Request DONE [facility] All Active Problems (Updated 12/30/21 @ 19:45 by Ruth Tian MD) Carotid stenosis (Acute) TIA (transient ischemic attack) (Acute) Hypertension (Chronic) Dizziness (Acute) Tobacco use disorder (Chronic) IFG (impaired fasting glucose) (Chronic 01/18/17) History of colon polyps (Acute) Elevated plasma metanephrines (Chronic) Hot flashes (Chronic) Cervical radiculitis (Acute) Ocular migraine (Chronic) Carpal tunnel syndrome of left wrist (Chronic) Vitamin D deficiency (Chronic) Hyperlipidemia (Chronic 04/17/02) 12/2020 labs: 10-year ASCVD risk = ~7.6% Essential hypertension (Chronic 05/17/13) Diverticulosis (Chronic 11/13/15) Atrophic vaginitis (Chronic 03/09/17) Rx with Estring. Acquired hypothyroidism (Chronic 04/17/99) s/p radioablation for Graves hyper 1997; h/o exophthalmos L eye Rx 6 wk prednisone 1999; pt's TSH goal: ~2 Medical History Colonic adenoma (10/17/15) repeat 2020 Graves' ophthalmopathy TIA (transient ischemic attack) (04/29/15) Pt. states this is incorrect, pt. states this was ruled out by the neurologist (Omar Perez) Tubular adenoma of colon Surgical History Arthroplasty of knee (08/04/06) arthroscopy bunionectomy (09/20/15) Dr Valverde R Cholecystectomy (11/16/05) laparoscopic EGD - MAC (07/21/15) hammer toe repair (09/20/15) R 2nd toe arthrodesis Hx of colonoscopy Open Carpal Tunnel release (11/01/17) [facility] Trigger Finger release (05/02/13) Dr. Mcwilliams Family History Mother COPD (chronic obstructive pulmonary disease) Cerebral aneurysm Dementia Heart disease Hypertension Father , prostate ca at age 86. Diabetes Personal history of malignant neoplasm Metastasized prostate CA Heart disease Hypertension Social History Smoking/Tobacco Use Status: Current every day Tobacco Type: cigarettes Smoking packs per day: 0.75 Smoking cigarettes per day: 15.0 Years smoked: 40 Smoking pack-years: 30.00 Tobacco: How many years used: 30 Quit status: not considering quitting Smoking risk assessment performed?: Yes Alcohol Intake: current Alcohol Intake frequency: 0-2 drinks per day Alcohol type: wine Drug use: Never Substance use type: does not use Adopted: No Caregiver/Support person: No Foster care: No Household members: spouse Housing: apartment Communication Needs: None Education Level: college Do you need help understanding health information?: Rarely 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 Pets and animals: Yes Pets and animals: cat(s) Sexually active: Yes Do you think of yourself as: straight/heterosexual Current gender identity: female What is your relationship status?: How often do you talk on the phone with friends or family?: three or more times per week How often do you get together with friends or relatives?: twice per week Do you belong to any clubs or organized social groups?: no Panel score (0-1 are the most socially isolated patients): 2 Special violet needs: No Seatbelt use: always Helmet use: No Drive intox or ride w/intox water truck driver: No Water heater temp set <120 deg: Yes Working smoke detector in home: Yes Fire extinguisher in home: Yes Carbon monox detector in home: Yes Firearms in home: No Do you feel safe at home: Yes Do you feel safe in your relationship?: Yes Victim of physical abuse: No Victim of emotional abuse: No Victim of sexual abuse: No History History 0 Para Hx # Term Pregnancies Multiple births Hx # Pregnancies Ectopic pregnancies AB induced Hx Number of Living Children AB spontaneous
--- NOTE | 2021-12-31 13:49 | PDOC.CMPRO ---
- If Service Date Differs Date of service: 12/31/21 Time of Service: 13:49 Care Management Progress Note Chloe was discharged before CM could meet with her. She presented to the hospital with symptoms consistent with a TIA. She was found to have greater than 70% stenosis of her left internal carotid artery. She was discharged with outpatient follow up: Vascular Surgery at [facility]: 01/01/22 at 4 pm AMBER Moser: Wednesday01/02/22 at 10:[address] Decker on at 1:30 pm. She will transport with her via private vehicle.
== END 2021-12-31 13:24 | disposition home or self-care (01) ==
LOC: ER 13:44 → MS 14:32
PROVIDERS: Admitting Provider Family Medicine; Emergency Provider Physician Assistant; PCP Nurse Practitioner Family; Visit Provider Family Medicine
DX: I65.23 Occlusion and stenosis of bilateral carotid arteries (principal); F17.210 Nicotine dependence, cigarettes, uncomplicated; I10 Essential (primary) hypertension; E78.5 Hyperlipidemia, unspecified; G43.109 Migraine with aura, not intractable, without status migrainosus; R73.01 Impaired fasting glucose; E89.0 Postprocedural hypothyroidism; R11.0 Nausea
CPT/HCPCS: 36415; 70496; 70498; 80048; 80053; 80061; 87635; 93005; 93270; 93306; 96361; 96365; 96366; 96375; 99285; 70551; 71046; 83735; 84443; 84484; 85025; 93010; 93880; 99217; 99220; G0378; J0131; J2060; J2405; J3490

== ENCOUNTER 2022-01-02 11:15 | Outpatient (CLI) | payer OTHER, SELFPAY ==
--- NOTE | 2022-02-02 08:23 | CER_ITS ---
Date of service: 02/02/22 Time of Service: 08:23 Cardiac Event Recorder Referring Provider:: Murray Lincoln Indications:: Transient ischemic attack Cardiac Event Note: This is a 14-day cardiac event monitor, ordered for a transient ischemic attack Predominant rhythm was sinus with an average heart rate of 81. Minimum was 57, maximum 107 There were no significant ventricular or supraventricular dysrhythmias There was no atrial fibrillation, no pauses greater than 3 seconds, no high- grade AV block There were no apparent patient symptoms
== END 2022-01-02 11:16 | disposition home or self-care (01) ==
PROVIDERS: PCP Nurse Practitioner Family; Visit Provider Internal Medicine
DX: G45.9 Transient cerebral ischemic attack, unspecified (principal); I65.29 Occlusion and stenosis of unspecified carotid artery
CPT/HCPCS: 93270

== ENCOUNTER 2022-03-07 15:27 | Outpatient (REF) | payer OTHER, SELFPAY | END 2022-03-07 15:28 | disposition home or self-care (01) | LOC: LBN 15:27 | PROVIDERS: PCP Nurse Practitioner Family; Visit Provider Physician Assistant Medical | DX: L02.11 Cutaneous abscess of neck (principal) | CPT/HCPCS: 87070; 87205 ==

== ENCOUNTER 2022-04-16 10:16 | Outpatient (REF) | payer OTHER, SELFPAY ==
--- NOTE | 2022-04-16 08:30 | PAPFT_PTH ---
PATIENT: Chloe Doran LOC: [facility] U#:[id number] AGE/SX: 61/F ROOM: RE04/16/[address]: ORIN Katz : 1960 BED: DIS: 04/16/2022 SPEC #: [id number] RECD: 04/16/22 13:08 STATUS: [place] REQ #: [id number] PAU: 04/16/22 08:[address]: Bridgett Slater DEPT: [facility] Cytology RECD BY: Lennie Chinchilla ENTERED: 04/16/22 13:08 SP TYPE: PAPFT OTHR DR: Nicole Moser APRN Tissues: 1 - CX/ENDOCX FOR PAP SMEARS Procedures: PAP THIN PREP/[facility] Screening HPV DNA PROBE Comments: [id number]
== END 2022-04-16 10:17 | disposition home or self-care (01) ==
LOC: LBN 10:16
PROVIDERS: PCP Nurse Practitioner Family; Visit Provider Nurse Practitioner Family
DX: Z11.51 Encounter for screening for human papillomavirus (HPV) (principal)
CPT/HCPCS: 88142; 87624

== ENCOUNTER → 2022-05-11 02:25 | Outpatient (CLI) | payer OTHER, SELFPAY ==
--- NOTE | 2022-05-11 17:30 | DI.MAMMO_ITS ---
Exam(s) MAMMO SCREENING EXAM: MAMMO SCREENING CLINICAL HISTORY: screening. TECHNIQUE: Bilateral full field digital CC and MLO mammographic images were obtained with 3D tomosyn thesis and utilizing computer aided detection (CAD). COMPARISON: Prior mammograms were reviewed, the most recent being February 2019. FINDINGS: There has been no significant change in the appearance and distribution of the fibroglandular tissue. There are no CAD designations. There are no new significant radiographic findings in right breast. In the left breast on MLO images there to findings, both measuring approximately 5 millimeters size a nd both of which are approximately 5 cm from nipple. No malignant-appearing microcalcification groups is region or elsewhere in either breast There is no significant architectural distortion nor skin thickening-retraction. IMPRESSION: 1. No radiographic evidence of malignancy in the right breast. 2. Two left breast findings on MLO view which will require spot compression views and breast ultrasou nd BI-RADS Category 0 - Assessment Incomplete: Need additional imaging evaluation Breast Density - Category B - Scattered areas of fibroglandular density Breast density Category C or D implies that the patient has dense breast tissue. Dense breast tissue can make it harder to find cancer on a mammogram. Dense breast tissue is also associated with an incr eased risk of breast cancer. This information about the result of the mammogram report was provided to the patient to raise their awareness. Use this report when you speak with the patient about their risks for breast cancer, which includes their family history. At that time, you may recommend additional screening tests (Ultrasoun d or MRI) as these tests may add significant information. A negative radiographic report should not delay biopsy if a dominant or clinically suspicious mass is present. Up to ten percent of cancers are not identified on mammography. A negative report may reinforce clinical impression. Adenosis and dense breasts may obscure an underlying neoplasm. False positive reports average 6 to 10%. Patient will receive a letter notifying them of these results.
== END ==
PROVIDERS: PCP Nurse Practitioner Family; Visit Provider Nurse Practitioner Family
DX: Z12.31 Encounter for screening mammogram for malignant neoplasm of breast (principal); R92.8 Other abnormal and inconclusive findings on diagnostic imaging of breast
CPT/HCPCS: 77063; 77067

== ENCOUNTER → 2022-05-21 02:25 | Outpatient (CLI) | payer OTHER, SELFPAY ==
--- NOTE | 2022-05-21 14:46 | DI.MAMMO_ITS ---
Exam(s) MAMMO SCREEN CALL BACK UNI EXAM: MAMMO SCREEN CALL BACK UNI CLINICAL HISTORY: F/U [facility] MAMMO, TWO FINDINGS ON MLO VIEW TECHNIQUE: Spot compression views and tomographic imaging were performed. COMPARISON: 11 May 2022 and exams back to 2012. FINDINGS: No suspicious masses or suspicious microcalcifications are seen. No persistent abnormality is seen on the additional views performed. The findings are consistent wit h overlying fibroglandular tissue. There has been no significant change from prior exams. IMPRESSION: BI-RADS Category 1, Negative Yearly screening mammography is recommended. Breast Density - Category B, scattered fibroglandular densities.
== END ==
PROVIDERS: PCP Nurse Practitioner Family; Visit Provider Nurse Practitioner Family
DX: Z12.31 Encounter for screening mammogram for malignant neoplasm of breast (principal); R92.8 Other abnormal and inconclusive findings on diagnostic imaging of breast; N64.59 Other signs and symptoms in breast
CPT/HCPCS: 77063; 77067

== ENCOUNTER 2022-09-11 01:32 | Outpatient (CLI) | payer OTHER, SELFPAY ==
[2022-09-11 07:12] LABS: Abs Immature Grans 0.03 10^3/uL (0.0-0.06); Absolute Basophil Count 0.07 10^3/uL (0.0-0.2); Absolute Eosinophil Count 0.15 10^3/uL (0.0-0.7); Absolute Lymphocyte Count 2.43 10^3/uL (1.2-3.4); Absolute Monocyte Count 0.78 10^3/uL (0.1-0.8); Absolute Neutrophil Count 5.97 10^3/uL (1.2-6.7); Basophils % 0.7; Eosinophils % 1.6; HGB 15.7 g/dL (11.2-15.7); Immature Grans % 0.3; Lymphocytes % 25.8; MCH 32.1 pg (27.0-33.0); MCHC 34.1 % (32.0-36.0); MCV 94 fL (80-95); MPV 10.4 fL (8.0-11.0); Monocytes % 8.3; Neutrophils % 63.3; Platelet Count 210 10^3/uL (130-400); RBC 4.89 10^6/uL (3.93-5.22); RDW 11.8 % (11.7-14.6); RDW-SD 41.1 fL; WBC 9.43 10^3/uL (4.4-10.8)
[2022-09-11 08:06] LABS: Hemoglobin A1C 5.4 % (<5.7)
[2022-09-11 08:42] LABS: ALT 24 U/L (14-59); AST 24 U/L (15-37); Albumin 3.8 g/dL (3.4-5.0); Alkaline Phosphatase 112 U/L (46-116); BUN 8 mg/dL (7-18); Bilirubin, Total 0.5 mg/dL (0.2-1.0); CREATININE 0.6 mg/dL (0.55-1.02); Calcium 8.9 mg/dL (8.5-10.1); Calculated LDL 83 mg/dL (<100); Chloride 100 mmol/L (98-107); Cholesterol 192 mg/dL (<200); Estimated GFR 103.33 (mL/min/1.73m2); Glucose 122 mg/dL (74-106); HDL Cholesterol 97 mg/dL (40-60); Potassium 3.4 mmol/L (3.5-5.1); Sodium 136 mmol/L (136-145); TSH (W/Ref FT4) 0.17 uIU/mL (0.36-3.74); Total Protein 7.4 g/dL (6.4-8.2); Triglyceride 63 mg/dL (<150)
[2022-09-11 09:05] LABS: FREE T4 1.52 ng/dL (0.76-1.46)
[2022-09-14 10:38] LABS: Hepatitis C Ab w Rflx HCV PCR Negative (Negative)
== END 2022-09-11 01:33 | disposition home or self-care (01) ==
LOC: LBO 01:32
PROVIDERS: PCP Nurse Practitioner Family; Visit Provider Nurse Practitioner Family
DX: E03.9 Hypothyroidism, unspecified (principal); I10 Essential (primary) hypertension; E78.5 Hyperlipidemia, unspecified; Z11.59 Encounter for screening for other viral diseases; Z51.81 Encounter for therapeutic drug level monitoring; R73.01 Impaired fasting glucose
CPT/HCPCS: 36415; 80053; 80061; 86803; 83036; 84439; 84443; 85025

== ENCOUNTER 2022-11-19 04:02 | Outpatient (CLI) | payer BC, SELFPAY ==
[2022-11-19 08:52] LABS: Calculated LDL 91 mg/dL (<100); Cholesterol 219 mg/dL (<200); HDL Cholesterol 119 mg/dL (40-60); TSH (W/Ref FT4) 5.06 uIU/mL (0.36-3.74); Triglyceride 46 mg/dL (<150)
[2022-11-19 09:12] LABS: FREE T4 1.04 ng/dL (0.76-1.46)
[2022-11-19 09:38] LABS: Vitamin D 25 Total 24.3 ng/mL (30-100)
== END 2022-11-19 04:03 | disposition home or self-care (01) ==
LOC: LBO 04:08
PROVIDERS: PCP Nurse Practitioner Family; Visit Provider Nurse Practitioner Family
DX: E03.9 Hypothyroidism, unspecified (principal); E78.5 Hyperlipidemia, unspecified; E55.9 Vitamin D deficiency, unspecified
CPT/HCPCS: 36415; 80061; 82306; 84439; 84443

== ENCOUNTER 2023-04-15 04:12 | Outpatient (CLI) | payer BC, SELFPAY ==
[2023-04-15 09:18] LABS: Iron 106 ug/dL (50-170); Total Iron Binding Capacity 342 ug/dL (250-450); Transferrin Sat 31 % (15-50)
[2023-04-15 09:29] LABS: Calculated LDL 161 mg/dL (<100); Cholesterol 256 mg/dL (<200); Ferritin 97 ng/mL (8-252); HDL Cholesterol 78 mg/dL (40-60); Triglyceride 85 mg/dL (<150)
[2023-04-15 09:41] LABS: Vitamin D 25 Total 29.3 ng/mL (30-100)
== END 2023-04-15 04:13 | disposition home or self-care (01) ==
LOC: LBO 04:13
PROVIDERS: PCP Nurse Practitioner Family; Referring Provider Nurse Practitioner Family; Visit Provider Nurse Practitioner Family
DX: E78.5 Hyperlipidemia, unspecified (principal); G47.62 Sleep related leg cramps; E55.9 Vitamin D deficiency, unspecified
CPT/HCPCS: 36415; 80061; 82306; 82728; 83540; 83550

== ENCOUNTER 2023-10-27 15:55 | Outpatient (REF) | payer BC, SELFPAY ==
[2023-10-27 12:30] LABS: FREE T4 1.62 ng/dL (0.76-1.46)
== END 2023-10-27 15:56 | disposition home or self-care (01) ==
LOC: LBN 15:55
PROVIDERS: PCP Nurse Practitioner Family; Visit Provider Nurse Practitioner Adult Health
DX: E03.9 Hypothyroidism, unspecified (principal)
CPT/HCPCS: 84439; 84443

== ENCOUNTER 2024-02-17 05:22 | Outpatient (CLI) | payer BC, SELFPAY ==
[2024-02-17 08:39] LABS: Hemoglobin A1C 5.6 % (<5.7)
[2024-02-17 09:18] LABS: Creatine Kinase 83 U/L (26-192); TSH (W/Ref FT4) 6.99 uIU/mL (0.36-3.74)
[2024-02-17 09:37] LABS: FREE T4 1.19 ng/dL (0.76-1.46)
[2024-02-17 09:49] LABS: Calculated LDL 101 mg/dL (<100); Cholesterol 213 mg/dL (<200); HDL Cholesterol 98 mg/dL (40-60); Triglyceride 73 mg/dL (<150)
== END 2024-02-17 05:23 | disposition home or self-care (01) ==
LOC: LBO 05:22
PROVIDERS: PCP Nurse Practitioner Adult Health; Visit Provider Nurse Practitioner Adult Health
DX: E03.8 Other specified hypothyroidism (principal); E78.5 Hyperlipidemia, unspecified; Z51.81 Encounter for therapeutic drug level monitoring; R73.01 Impaired fasting glucose
CPT/HCPCS: 36415; 80061; 82550; 83036; 84439; 84443

== ENCOUNTER 2025-03-08 03:25 | Outpatient (CLI) | payer OTHER, SELFPAY ==
[2025-03-08 11:21] LABS: Anion Gap 7.2 mmol/L (3-11); BUN 13 mg/dL (7-18); CO2 29.8 mmol/L (21.0-32.0); CREATININE 0.6 mg/dL (0.55-1.02); Calcium 9.4 mg/dL (8.5-10.1); Chloride 101 mmol/L (98-107); Estimated GFR 101.42 (mL/min/1.73m2); Glucose 96 mg/dL (74-106); Potassium 3.6 mmol/L (3.5-5.1); Sodium 138 mmol/L (136-145); TSH (W/Ref FT4) 1.08 uIU/mL (0.36-3.74)
== END 2025-03-08 03:26 | disposition home or self-care (01) ==
PROVIDERS: PCP Nurse Practitioner Adult Health; Visit Provider Nurse Practitioner Adult Health
DX: E03.9 Hypothyroidism, unspecified (principal); I10 Essential (primary) hypertension
CPT/HCPCS: 36415; 80048; 84443

== ENCOUNTER 2025-06-28 03:17 | Outpatient (CLI) | payer OTHER, SELFPAY ==
--- NOTE | 2025-06-28 06:15 | DI.MAMMO_ITS ---
Exam(s) MAMMO SCREENING EXAM: MAMMO SCREENING CLINICAL HISTORY: screening,Z12.39. TECHNIQUE: Bilateral full field digital CC and MLO mammographic images were obtained with 3D tomosynthesis and utilizing computer aided detection (CAD). COMPARISON: Prior mammograms were reviewed. FINDINGS: There has been no significant change in the appearance and distribution of the fibroglandular tissue. There are no CAD designations. There are no new spiculated masses nor malignant appearing microcalcification groups. The previously described left breast findings are no longer seen on the present mammogram. There is no significant architectural distortion nor skin thickening-retraction. IMPRESSION: No radiographic evidence of malignancy. BI-RADS Category 1 - Negative Breast Density - Category C - The breast are heterogeneously dense, which may obscure small masses. Breast density Category C or D implies that the patient has dense breast tissue. Dense breast tissue can make it harder to find cancer on a mammogram. Dense breast tissue is also associated with an increased risk of breast cancer. This information about the result of the mammogram report was provided to the patient to raise their awareness. Use this report when you speak with the patient about their risks for breast cancer, which includes their family history. At that time, you may recommend additional screening tests (Ultrasound or MRI) as these tests may add significant information. A negative radiographic report should not delay biopsy if a dominant or clinically suspicious mass is present. Up to ten percent of cancers are not identified on mammography. A negative report may reinforce clinical impression. Adenosis and dense breasts may obscure an underlying neoplasm. False positive reports average 6 to 10%. Patient will receive a letter notifying them of these results.
== END 2025-06-28 03:37 ==
LOC: DI 03:18
PROVIDERS: PCP Nurse Practitioner Adult Health; Visit Provider Nurse Practitioner Adult Health
DX: Z12.31 Encounter for screening mammogram for malignant neoplasm of breast (principal); R92.323 Mammographic fibroglandular density, bilateral breasts
CPT/HCPCS: 77063; 77067

== ENCOUNTER 2025-08-22 16:10 | Outpatient (REF) | payer OTHER, SELFPAY ==
[2025-08-22 20:55] LABS: Uric Acid 4.5 mg/dL (2.6-6.0)
== END 2025-08-22 16:11 | disposition home or self-care (01) ==
LOC: LBN 16:10
PROVIDERS: PCP Nurse Practitioner Adult Health; Visit Provider Nurse Practitioner Adult Health
DX: M25.539 Pain in unspecified wrist (principal)
CPT/HCPCS: 84550

== ENCOUNTER 2025-09-28 06:16 | Day surgery (SDC) | payer OTHER, SELFPAY ==
--- NOTE | 2025-09-27 21:46 | W.PM.DSUDISC ---
Date of service: 09/28/25 Discharge Plan Disposition Patient Disposition: Home Condition: Good Discharge Details Reason For Visit: Screening colonoscopy Attending Provider: Randell Norton Primary Care Provider: Ban Nguyen Home Meds and New Rx's Prescriptions: Continued cholecalciferol (vitamin D3) 50 mcg (2,000 unit) capsule 50 mcg PO DAILY Vitamin B complex PO albuterol sulfate 90 mcg/actuation HFA aerosol inhaler 2 puff inhalation Q4H PRN (Reason: shortness of breath or wheezing) Qty: 8.5 1RF Rx Instructions: Asthma symptoms; rinse following use; may dispense with spacer (if needed) aspirin 81 MG tablet,delayed release (DR/EC) 81 mg PO DAILY levothyroxine 137 mcg tablet See Rx Instructions .ROUTE .COMPLEX Qty: 90 3RF Dose Instruction: TAKE ONE TABLET BY MOUTH EVERY MORNING ON EMPTY STOMACH APART FROM FOOD AND MEDS BY 30 MIN. Rx Instructions: TAKE ONE TABLET BY MOUTH EVERY MORNING ON EMPTY STOMACH APART FROM FOOD AND MEDS BY 30 MIN. amlodipine 10 mg tablet See Rx Instructions .ROUTE .COMPLEX Qty: 90 3RF Dose Instruction: TAKE ONE TABLET BY MOUTH EVERY DAY Rx Instructions: TAKE ONE TABLET BY MOUTH EVERY DAY fluticasone propionate 44 mcg/actuation HFA aerosol inhaler See Rx Instructions .ROUTE .COMPLEX Qty: 10.6 6RF Dose Instruction: INHALE TWO PUFFS BY MOUTH TWICE A DAY NEEDED FOR BRONCHITIS WITH SPACER. RINSE AFTER USE Rx Instructions: INHALE TWO PUFFS BY MOUTH TWICE A DAY NEEDED FOR BRONCHITIS WITH SPACER. RINSE AFTER USE trazodone 50 mg tablet See Rx Instructions .ROUTE .COMPLEX Qty: 120 4RF Dose Instruction: TAKE 1/2 TO 1 TABLET BY MOUTH AT BEDTIME NEEDED FOR SLEEP DIFFICULTY. MAY REPEAT ONCE IF FIRST DOSE INEFFECTIVE Rx Instructions: TAKE 1/2 TO 1 TABLET BY MOUTH AT BEDTIME NEEDED FOR SLEEP DIFFICULTY. MAY REPEAT ONCE IF FIRST DOSE INEFFECTIVE ezetimibe 10 mg tablet See Rx Instructions .ROUTE .COMPLEX Qty: 90 3RF Dose Instruction: TAKE ONE TABLET BY MOUTH EVERY DAY Rx Instructions: TAKE ONE TABLET BY MOUTH EVERY DAY Discontinued bisacodyl 5 mg tablet,delayed release (DR/EC) 5 mg PO ONCE Qty: 4 0RF Rx Instructions: Per Colonoscopy bowel prep instructions polyethylene glycol 3350 17 gram/dose powder 238 g PO ONCE Qty: 238 0RF Rx Instructions: For Colonoscopy bowel prep, as directed by office Discharge Instructions Instructions: Hemorrhoids, Colon polyps, Diverticulosis Additional Instructions: Chloe, was very nice to meet you today, and I hope you feel well after the colonoscopy. Things went smoothly. I did find, and removed 2 polyps today. Both of these were small, and certainly nothing to worry about by the naked eye. As we discussed beforehand, I will send these polyps to the pathologist for their review. Once I know the nature of the polyps, my office will be in touch with recommendations for future colonoscopies. Incidentally, you also have diverticulosis and internal hemorrhoids. Diverticulosis occurs when the muscular layer of the colon wall weakens as we age, causing the inside lining, or mucosa to pocket her pouch outwards. This is often times associated with some inflammation of the tissue. I will attach some basic information here about colon and rectal polyps, as well as hemorrhoids and diverticulosis. If you need anything or have any questions at all, please do not hesitate to ask. Otherwise, I will let you know once the pathology results are complete. 1. If tolerated, consume a soft, low fiber diet for 1-2 days. 2[address] Do not drive, drink alcohol, operate machinery, make critical decisions, or do activities that require coordination or balance for 24 hours. 3. Because air was put into your colon during the procedure, expelling air from your rectum (passing gas or farting) is normal. 4. You may not have a bowel movement for 1-3 days because of the colonoscopy prep. This is normal. 5. Go directly to the emergency room if you notice any of the following: Develop chills (warm to touch), or if you have a thermometer and your temperature is above 101 Difficulty breathing or difficultly swallowing Persistent vomiting Severe abdominal pain, other than gas cramps Severe chest pain Black, tarry stools Any bleeding ? exceeding one tablespoon 6. Call your physician if the site where your intravenous was started becomes red, swollen, painful, and warm to touch. 7. Your physician has reviewed your pre-procedure medications. Please continue to take those medications as previously ordered. You will be given specific information/education regarding any changes to your medications before leaving. Stand Alone Forms: Anesthesia Discharge InstIon, Werner Aguila (NAJMA), Portal Information Activity:: Activity as Tolerated Diet:: As Tolerated Discharge Orders Discharge Orders: Discharge Order (Routine); Ordered 09/27/25 Ordered By: Randell Norton DS: Diagnosis Discharge Diagnosis (1) Encounter for screening colonoscopy: Status: Acute Asessment and Plan: Follow-up on polyp results
--- NOTE | 2025-09-27 21:47 | W.COLOREPORT ---
Date of service: 09/28/25 Time of Service: 08:08 Colonoscopy Report Date of procedure: 09/28/25 Pre-op diagnosis general: Screening colonoscopy Post-op diagnosis procedure note: other (Internal hemorrhoids, sigmoid diverticulosis, colorectal polyps) Procedure: Colonoscopy with polypectomy Surgeon: Randell Norton Anesthesia Type: General:No Airway Estimated blood loss (mL): 5 Pathology: other (0.25 cm rectal polyp, 0.25 cm flat polyp at 70 cm) Complications: None Disposition: same day Indications: Chloe is a 64-year-old woman who needs her next screening colonoscopy Prep: Miralax/Dulcolax Procedure Start Time: 07:31 Procedure End Time: 07:58 Retraction Time: 11 Findings: Internal hemorrhoids, sigmoid diverticulosis, colorectal polyps Procedure Description: After the induction of anesthesia, and with the patient in left lateral decubitus position, I began by performing an external anorectal exam.? Perineum and skin were normal, as was the anal verge.? This was normal.? Next, I performed a digital rectal exam.? I did not appreciate any abnormal findings.? Next, I advanced a colonoscope into the rectal vault.? I performed retroflexion.? There are internal hemorrhoids.? In the midportion of the rectal vault there is a 0.25 cm flat polyp. I removed this with cold forceps with minimal bleeding. Using irrigation, I then advanced the colonoscope beyond the rectal folds and into the sigmoid colon before advancing towards the cecum.? There is sigmoid diverticulosis.? The scope was noted to be in the cecum by identification of the ileocecal valve and appendiceal orifice.? I then began withdrawing the colonoscope using repeated irrigation as necessary for full evaluation of the colonic mucosa. ?Around 70 cm past the anal verge was another 0.25 cm flat polyp. This was removed with cold forceps with minimal bleeding. Beginning around 45 cm past the anal verge is some sigmoid diverticulosis. There are some segmental areas of mild inflammation associated with this once the scope was withdrawn to the level of the rectum, great care was taken to examine portions of the rectal folds.? Finally, the scope was withdrawn and the patient was brought to the same-day surgery recovery unit as the anesthetic wore off. ?The findings and instructions were shared with the patient prior to discharge. [place] Bowel Prep [place] Bowel Prep Right Colon: 2 Left Colon: 2 Transverse Colon: 3 Total Score: 7
[2025-09-28 06:37] VITALS: BP 119/74; PULSE 74; RESP 14; TEMP 36.3; O2SAT 96
[2025-09-28] MEDS: Lactated Ringers 1,000 ML 80 ML IV (06:57)
--- NOTE | 2025-09-28 07:03 | ANES.PREOP_ITS ---
General Info Date of Service Date Performed: 09/28/25 Height: 5 ft 7 in Weight: 59.9 kg Body Mass Index (BMI): 20.7 Surgical Procedure: Operation Date: 09/28/25 07:35 Proposed Procedure Side Surgeon p Colonoscopy Randell Norton MD Actual Procedure Side Surgeon p Colonoscopy Not Applicable Randell Norton MD Pre-Op Diagnosis Post-Op Diagnosis Screening colonoscopy, history of polyps Meds Allergies and Home Medications Allergies Allergy/AdvReac Type Severity Reaction Status Date / Time lisinopril AdvReac Intermediate cough Verified 09/28/25 06:31 propranolol AdvReac Intermediate stomach Verified 09/28/25 06:31 rosuvastatin calcium (From AdvReac Intermediate GI, Muscle Verified 09/28/25 06:31 Crestor) venlafaxine AdvReac Unknown [place]/Vomi Verified 09/28/25 06:31 ting atorvastatin AdvReac Other (See Verified 09/28/25 06:31 Comment) Home Medication ?Medication ?Instructions ?Recorded aspirin 81 mg tablet,delayed 81 mg PO DAILY 01/07/16 release cholecalciferol (vitamin D3) 50 50 mcg PO DAILY mcg (2,000 unit) capsule Vitamin B complex PO 05/25/24 levothyroxine 137 mcg tablet See Rx Instructions .Rout e 02/18/25 .COMPLEX #90 tabs amlodipine 10 mg tablet See Rx Instructions .Route 0 04/16/25 .COMPLEX #90 tabs albuterol sulfate 90 mcg/actuation 2 puff inhalation Q 4H PRN 04/26/25 aerosol inhaler shortness of breath or wheez ing #8.5 grams fluticasone propionate 44 See Rx Instructions .Route 0 05/21/25 mcg/actuation HFA aerosol inhaler .COMPLEX #10.6 grams trazodone 50 mg tablet See Rx Instructions .Route 0 06/20/25 .COMPLEX #120 tabs ezetimibe 10 mg tablet See Rx Instructions .Route 1 .COMPLEX #90 tabs Current Visit Medications: Current Medications Generic Name Dose Route Start Last Admin Trade Name Freq PRN Reason Stop Dose Admin Ringer's Solution 1,000 mls @ 80 mls/hr 09/28/25 06:00 09/28/25 06:57 IV 09/28/25 23:59 80 mls/hr INFUSION CHEL Administration Sodium Chloride 0 ml 09/28/25 06:00 Normal Saline Flush 10 Ml Syr IV 09/28/25 23:59 PRN PRN Sodium Chloride 0 ml 09/28/25 06:00 Normal Saline 10 Ml Vial IJ 09/28/25 23:59 DIRECTED PRN Sterile Water 0 ml 09/28/25 06:00 Water,Injection,Sterile 10 Ml Vial IJ 09/28/25 23:59 DIRECTED PRN PFSH Active Problems Active Problems: Problem Status Onset Code Encounter for screening colonoscopy Acute Z12.11 Sleeping difficulty Acute ~04/2025 G47.9 History of basal cell cancer Chronic Z85.828 Carotid stenosis, left Acute ~08/2023 I65.22 Asymptomatic stenosis of right carotid artery Acute I65.21 ASCVD (arteriosclerotic cardiovascular disease) Chronic I25.10 Tobacco use disorder Chronic F17.200 History of colon polyps Acute Z86.010 IFG (impaired fasting glucose) Chronic 01/18/17 R73.01 Vitamin D deficiency Chronic E55.9 Hyperlipidemia Chronic 04/17/02 E78.5 Essential hypertension Chronic 05/17/13 I10 Atrophic vaginitis Chronic 03/09/17 N95.2 Acquired hypothyroidism Chronic 04/17/99 E03.9 Medical History Medical History Hot flashes Cervical radiculitis Carpal tunnel syndrome of left wrist Basal cell carcinoma (BCC) of right lateral cheek (12/23/23) Basal cell carcinoma (BCC) of right lutheran region (12/23/23) Elevated plasma metanephrines [facility] Endo 2016; repeat testing normal Carotid stenosis S/p L CEA 01/2022 ([facility]) TIA (transient ischemic attack) (~01/2022) Tubular adenoma of colon Ocular migraine TIA (transient ischemic attack) (04/29/15) Pt. states this is incorrect, pt. states this was ruled out by the neurol ogist (Omar Perez) Diverticulosis (11/13/15) Colonic adenoma (10/17/15) repeat 2019 Graves' ophthalmopathy Surgical History Surgical History Hx of local excision of skin lesion 12/23/23;[facility]-pathology report:RIght lutheran:basal cell carcinoma,superficial and nodular type,margins negative. Right Lateral Cheek: Basal cell carcinoma,superficial and nodular type,margins negative. Nape of neck: follicular cyst History of right-sided carotid endarterectomy (~08/04/23) [facility] Vascular 08/10/23 Right carotid enterectomy with patch angioplasty performed 08/04/23 History of left-sided carotid endarterectomy (01/21/22) [facility] hammer toe repair (09/20/15) R 2nd toe arthrodesis bunionectomy (09/20/15) Dr Valverde R Trigger Finger release (05/02/13) Dr. Mcwilliams Open Carpal Tunnel release (11/01/17) [facility] EGD - MAC (07/21/15) Cholecystectomy (11/16/05) laparoscopic Arthroplasty of knee (08/04/06) arthroscopy-pt reports she believes this was done back in the 's Tobacco Smoking/Tobacco Use Status: Current every day Tobacco Type: cigarettes Smoking packs per day: 0.75 Smoking cigarettes per day: 20 Years smoked: 40 Smoking pack-years: 30.00 Alcohol Alcohol Intake: current Alcohol intake frequency: 0-2 drinks per day Alcohol type: wine Substance Use Substance use: Never Substance use type: does not use Counseling provided: none (pt not interested in quitting) Prental History History 0 Para Hx # Term Pregnancies Multiple births Hx # Pregnancies Ectopic pregnancies AB induced Hx Number of Living Children AB spontaneous Vital Signs and Lab Results Vital Signs Most Recent Vital Signs in EMR: Most Recent Vital Signs Temp Pulse Resp BP Pulse Ox 36.3 C L 74 14 119/74 96 09/28/25 06:37 09/28/25 06:37 09/28/25 06:37 09/28/25 06:37 09/28/25 06:37 Imaging and Studies Imaging and Studies Study information below may be from another EMR and interpreted by another provider. Please see original notes in EMR for more complete details. EKG Summary: 12/30/21: Exam: Resting ECG Reason for Exam: dizzy,faintness Patient Location: E HR:78 bpm ECG Measurements Heart Rate 78 AXIS FL 135 P 70 QRSd 83 QRS 62 QT 399 T61 QTc 456 Conclusion Sinus rhythm...normal P axis, V-rate 60- 99 Probable left atrial enlargement...P >50mS, <-0.10mV V1. Sinus. Normal axis. No STEMI. I have reviewed and interpreted ECG and agree with software generated interpretation. I have reviewed and I agree with the emergency room physician's ECG interpretation. Echocardiogram Summary: 12/30/21: Conclusion Normal left ventricular wall thickness and chamber size. Estimated ejection fraction is 65%. Wall motion is normal Normal right ventricular size and systolic function Both atria are normal in size There is no structural or hemodynamically significant valvular disease Anesthesia Assessment and Plan Anesthesia History Personal History: PONV Family History: No Family History of Anesthesia Complications Exercise Tolerance Exercise Tolerance: Metabolic Equivalents>4 Cardiac & Pulmonary Exam Cardiac Exam: Normal S1/S2 Heart Sounds Pulmonary Exam: Clear Bilateral Breath Sounds (Chronic smokers cough) Implantable Cardiac Device Does patient have a Pacemaker or an ICD?: No Airway Exam Known Difficult Airway: No Mallampati Class: 2 Mouth Opening: Normal (> 3cm) Thyromental Distance: Greater than 3 cm Neck Range of Motion: Full ROM Neck Circumference: Normal Teeth Condition: Normal Dentition ASA Classification ASA Score: ASA 3 Emergency Case?: No NPO Status NPO Status: NPO Clears >2 hours, Solids >8 hours Anesthesia Plan Resuscitation Status: Full Code Anesthesia Technique: General Anesthesia Airway Planned: Natural Airway Monitors Used: Standard Monitors
[2025-09-28 07:07] VITALS: BMI 20.7
--- NOTE | 2025-09-28 07:34 | BOWEL_PTH ---
PATIENT: Chloe Doran LOC: [facility] U#:[id number] AGE/SX: 64/F ROOM: RE09/28/[address]: Randell Norton MD : 1960 BED: DIS: 09/28/2025 SPEC #: [id number] RECD: 09/28/25 12:26 STATUS: [place] RE #: [id number] PAU: 09/28/25 07:[address]: Randell Norton DEPT: Surgical Specimen RECD BY: Lennie Chinchilla ENTERED: 09/28/25 12:27 SP TYPE: Bowel OTHR DR: Ban Nguyen, JAMES Tissues: 1 - BIOPSY BOWEL 2 - BIOPSY BOWEL Procedures: GROSS AND MICRO LEVEL 4 Comments: [id number]
[2025-09-28 08:05] VITALS: BP 100/73; PULSE 80; RESP 14; TEMP 36.4; O2SAT 99
--- NOTE | 2025-09-28 08:14 | W.ANESPOSTOP ---
Postoperative Evaluation Date, Time and Location Date Performed: 09/28/25 Time Performed: 08:14 Patient Location: Day Surgery Unit Vital Signs Most Recent Imported Vital Signs: Most Recent Vital Signs Temp Pulse Resp BP Pulse Ox 36.4 C L 80 14 100/73 99 09/28/25 08:05 09/28/25 08:05 09/28/25 08:05 09/28/25 08:05 09/28/25 08:05 Pain Score Most Recent Pain Score: Most Recent Pain Score Pain Level 0 09/28/25 08:05 Assessment Mental Status: Awake (Alert & Oriented to Patient Baseline) Airway and Respiratory Function: Patent airway with normal (patient baseline) respiratory exam Cardiovascular Function: Hemodynamically Stable Hydration Status: Adequately Hydrated Nausea & Vomiting: No Nausea or Vomiting Pain: Pt. Denies Any Pain Peripheral Nerve Block: Patient did not receive a nerve block
[2025-09-28 08:36] VITALS: BP 139/84; PULSE 70; RESP 18; TEMP 36.3; O2SAT 100
== END 2025-09-28 08:52 | disposition home or self-care (01) ==
LOC: SUR 06:17
PROVIDERS: PCP Nurse Practitioner Adult Health; Visit Provider Surgery
PROC: 0DJD8ZZ Inspection of Lower Intestinal Tract, Via Natural or Artificial Opening Endoscopic (ICD-10-PCS; CPT 45378; principal; 2025-09-28 07:30)
DX: Z12.11 Encounter for screening for malignant neoplasm of colon (principal); K63.5 Polyp of colon; D12.8 Benign neoplasm of rectum; K57.30 Diverticulosis of large intestine without perforation or abscess without bleeding; K64.8 Other hemorrhoids
CPT/HCPCS: 45380; 88305; J2003; J2405; J2704